=== PATIENT | male | born 1960 | race American Indian/Alaskan Native ===

== ENCOUNTER 2018-07-19 08:20 | Emergency (ER) | payer OTHER ==
[2018-07-19 08:27] VITALS: BP 185/102
[2018-07-19] MEDS ORDERED: NACL 0.9% 1000 ML 1,000 ML IV ONE (09:25)
[2018-07-19] MEDS ORDERED: PEPCID IV ONE (09:25)
[2018-07-19] MEDS ORDERED: ZOFRAN IV ONE (09:25)
[2018-07-19 09:41] LABS: Basophils # (Auto) 0.1 K/mm3 (0.0-0.1); Basophils % (Auto) 1.3 % (0.0-1.8); Eosinophils # (Auto) 0.1 K/mm3 (0.0-0.4); Eosinophils % (Auto) 1.3 % (0.0-4.3); Hematocrit 46.3 % (35.5-45.6); Hemoglobin 15.7 gm/dl (11.8-15.2); Lymphocytes # (Auto) 1.3 K/mm3 (1.2-5.4); Lymphocytes % (Auto) 18.6 % (13.4-35.0); Mean Corpuscular HGB Conc 34 % (32-34); Mean Corpuscular Volume 92 fl (84-94); Monocytes # (Auto) 0.7 K/mm3 (0.0-0.8); Monocytes % (Auto) 10.5 % (0.0-7.3); Platelet Count 254 K/mm3 (140-440); Red Blood Count 5.01 M/mm3 (3.65-5.03); Red Cell Distribution Width 14.2 % (13.2-15.2)
[2018-07-19 09:45] LABS: Bilirubin,Urine NEG (Negative); Blood,Urine NEG (Negative); Color,Urine Yellow (Yellow); Mucus,Urine FEW /HPF; Protein,Urine <15 mg/dL mg/dL (Negative); Urobilinogen,Urine < 2.0 mg/dL (<2.0); WBC,Urine < 1.0 /HPF (0.0-6.0)
[2018-07-19 10:12] LABS: Alanine Aminotransferase 26 units/L (7-56); Albumin 4.3 g/dL (3.9-5); BUN/Creatinine Ratio 17; Blood Urea Nitrogen 15 mg/dL (9-20); Hemolysis Index 9
--- NOTE | 2018-07-19 11:18 | Cat Scan Report ---
CT ABDOMEN PELVIS WITH CONTRAST: HISTORY: Right sided abdominal pain with blood in stool. COMPARISON: none. TECHNIQUE: Helical CT in 1.25mm intervals following IV contrast. Sagittal and coronal reconstructions. FINDINGS: Lung bases: Normal. Liver: There is mild diffuse fatty infiltration throughout the liver. No enlargement or focal mass. Biliary system: Cholecystectomy. No biliary dilatation. Pancreas: Normal. Spleen: Normal. Kidneys/ureters/bladder: Normal. Adrenal glands: Normal. Aorta: Normal. Intestines: No oral contrast was administered which limits this exam. There is no evidence for bowel obstruction or focal inflammation. There are a few scattered diverticula in the descending and sigmoid colon. Appendix: Normal. Pelvic viscera: Normal. Ascites: None. Adenopathy: None. Musculoskeletal: Intact. Mild lumbar spondylosis. IMPRESSION: No acute process is identified. Mild diverticulosis of the distal colon. Mild hepatic steatosis.
--- NOTE | 2018-07-19 11:40 | Emergency Department Report ---
ED Abdominal Pain HPI - General Chief Complaint: Abdominal Pain Stated Complaint: STOMACH PAIN Time Seen by Provider: 07/19/18 09:20 Source: patient Mode of arrival: Ambulatory Limitations: No Limitations - History of Present Illness Initial Comments: Patient is a 57-year-old male who is presenting with some right sided abdominal crampiness. Patient states as a colicky discomfort is comes and goes. There is no association with eating or lying flat. Patient states he has had some belching and gas and has been taking Tums for gas. Patient noted some bright red blood in his stool with wiping yesterday. Patient has been taking Na prosyn for musculoskeletal pain. Patient denies any nausea vomiting fevers chills, cold or congestion at this time. - Related Data Previous Rx's Medication Instructions Recorded Last Taken Type Dicyclomine [Bentyl] 20 mg PO QID #10 tablet 07/19/18 Unknown Rx Famotidine [Pepcid] 20 mg PO BID #20 tablet 07/19/18 Unknown Rx Pantoprazole [Protonix] 40 mg PO QDAY #30 tablet 07/19/18 Unknown Rx Allergies Allergy/AdvReac Type Severity Reaction Status Date / Time No Known Allergies Allergy Unverified 07/19/18 08:21 ED Review of Systems ROS: Stated complaint: STOMACH PAIN Other details as noted in HPI Comment: All other systems reviewed and negative ED Past Medical Hx - Past Medical History Previous Medical History?: No Hx Hypertension: Yes - Surgical History Hx Cholecystectomy: Yes - Social History Smoking Status: Never Smoker Substance Use Type: Alcohol - Medications Home Medications: Home Medications Medication Instructions Recorded Confirmed Last Taken Type Dicyclomine [Bentyl] 20 mg PO QID #10 tablet 07/19/18 Unknown Rx Famotidine [Pepcid] 20 mg PO BID #20 tablet 07/19/18 Unknown Rx Pantoprazole [Protonix] 40 mg PO QDAY #30 tablet 07/19/18 Unknown Rx ED Physical Exam - General Limitations: No Limitations General appearance: alert, in no apparent distress - Head Head exam: Present: atraumatic, normocephalic - Eye Eye exam: Present: normal appearance - ENT ENT exam: Present: mucous membranes moist - Neck Neck exam: Present: normal inspection - Respiratory Respiratory exam: Present: normal lung sounds bilaterally. Absent: respiratory distress, wheezes, rales, rhonchi - Cardiovascular Cardiovascular Exam: Present: regular rate, normal rhythm, normal heart sounds. Absent: systolic murmur, diastolic murmur, rubs, gallop - GI/Abdominal GI/Abdominal exam: Present: soft, tenderness (mild tenderness in the right upper quadrant and right lower quadrant.), normal bowel sounds. Absent: distended, guarding, rebound, rigid - Rectal Rectal exam: Present: deferred - Extremities Exam Extremities exam: Present: normal inspection - Back Exam Back exam: Present: normal inspection - Neurological Exam Neurological exam: Present: alert, oriented X3 - Psychiatric Psychiatric exam: Present: normal affect, normal mood - Skin Skin exam: Present: warm, dry, intact, normal color. Absent: rash ED Course Vital Signs 07/19/18 08:25 Temperature 98.3 F Pulse Rate 95 H Respiratory 16 Rate Blood Pressure 185/102 O2 Sat by Pulse 97 Oximetry ED Medical Decision Making - Lab Data Result diagrams: 07/19/18 09:31 07/19/18 09:31 Lab Results 07/19/18 07/19/18 07/19/18 Range/Units 09:22 09:31 09:31 WBC 6.9 (4.5-11.0) K/mm3 RBC 5.01 (3.65-5.03) M/mm3 Hgb 15.7 H (11.8-15.2) gm/dl Hct 46.3 H (35.5-45.6) % MCV 92 (84-94) fl MCH 31 (28-32) pg MCHC 34 (32-34) % RDW 14.2 (13.2-15.2) % Plt Count 254 (140-440) K/mm3 Lymph % (Auto) 18.6 (13.4-35.0) % [place] % (Auto) 10.5 H (0.0-7.3) % Eos % (Auto) 1.3 (0.0-4.3) % Baso % (Auto) 1.3 (0.0-1.8) % Lymph # 1.3 (1.2-5.4) K/mm3 [place] # 0.7 (0.0-0.8) K/mm3 Eos # 0.1 (0.0-0.4) K/mm3 Baso # 0.1 (0.0-0.1) K/mm3 Seg Neutrophils % 68.3 (40.0-70.0) % Seg Neutrophils # 4.7 (1.8-7.7) K/mm3 Sodium 135 L (137-145) mmol/L Potassium 4.0 (3.6-5.0) mmol/L Chloride 98.4 (98-107) mmol/L Carbon Dioxide 24 (22-30) mmol/L Anion Gap 17 mmol/L BUN 15 (9-20) mg/dL Creatinine 0.9 (0.8-1.5) mg/dL Estimated GFR > 60 ml/min BUN/Creatinine Ratio 17 % Glucose 103 H (75-100) mg/dL Calcium 9.0 (8.4-10.2) mg/dL Total Bilirubin 1.00 (0.1-1.2) mg/dL AST 25 (5-40) units/L ALT 26 (7-56) units/L Alkaline Phosphatase 59 (35-129) units/L Total Protein 7.4 (6.3-8.2) g/dL Albumin 4.3 (3.9-5) g/dL Albumin/Globulin Ratio 1.4 % Lipase 26 (13-60) units/L Urine Color Yellow (Yellow) Urine Turbidity Clear (Clear) Urine pH 5.0 (5.0-7.0) Ur Specific [place] 1.019 (1.003-1.030) Urine Protein <15 mg/dl (Negative) mg/dL Urine Glucose (UA) Neg (Negative) mg/dL Urine Ketones Neg (Negative) mg/dL Urine Blood Neg (Negative) Urine Nitrite Neg (Negative) Urine Bilirubin Neg (Negative) Urine Urobilinogen < 2.0 (<2.0) mg/dL Ur Leukocyte Esterase Neg (Negative) Urine WBC (Auto) < 1.0 (0.0-6.0) /HPF Urine RBC (Auto) 1.0 (0.0-6.0) /HPF U Epithel Cells (Auto) 1.0 (0-13.0) /HPF Urine Mucus Few /HPF - Radiology Data [facility] [address] [place] [address] Cat Scan Report Signed Patient: GRETA PINEDO MR#: [id number] : 1960 Acct:[id number] Age/Sex: 57 / M ADM Date: 07/19/18 Loc: ED Attending Dr: Ordering Physician: KALPESH SCHULTZ MD Date of Service: 07/19/18 Procedure(s): CT abdomen pelvis w con Accession Number(s): [id number] cc: KALPESH SCHULTZ MD CT ABDOMEN PELVIS WITH CONTRAST: HISTORY: Right sided abdominal pain with blood in stool. COMPARISON: none. TECHNIQUE: Helical CT in 1.25mm intervals following IV contrast. Sagittal and coronal reconstructions. FINDINGS: Lung bases: Normal. Liver: There is mild diffuse fatty infiltration throughout the liver. No enlargement or focal mass. Biliary system: Cholecystectomy. No biliary dilatation. Pancreas: Normal. Spleen: Normal. Kidneys/ureters/bladder: Normal. Adrenal glands: Normal. Aorta: Normal. Intestines: No oral contrast was administered which limits this exam. There is no evidence for bowel obstruction or focal inflammation. There are a few scattered diverticula in the descending and sigmoid colon. Appendix: Normal. Pelvic viscera: Normal. Ascites: None. Adenopathy: None. Musculoskeletal: Intact. Mild lumbar spondylosis. IMPRESSION: No acute process is identified. Mild diverticulosis of the distal colon. Mild hepatic steatosis. Transcribed By: TTR Dictated By: SHANTAL TEIXEIRA JR, MD Electronically Authenticated By: SHANTAL TEIXEIRA JR, MD Signed Date/Time: 07/19/18 111 DD/ 1112 TD/TT: 07/19/18 1113 - Medical Decision Making Patient's CT shows some mild diverticular disease however this is an area opposite of what the patient has his discomfort. Peptic ulcer disease cannot be ruled out at this time. Patient will be referred to gastroenterology. Patient's doctor studies are within normal limits. Patient did have relief with the IV Pepcid that was given. Patient discharged home in stable condition. Critical care attestation.: If time is entered above; I have spent that time in minutes in the direct care of this critically ill patient, excluding procedure time. ED Disposition Clinical Impression: Diverticulosis, Peptic ulcer Disposition: DC-01 TO HOME OR SELFCARE Is pt being admited?: No Does the pt Need Aspirin: No Condition: Stable Additional Instructions: Your CT showed that she had diverticulosis however it is mild at this time and may not be the cause of your pain. Your symptoms are most consistent with peptic ulcer disease however no large or ruptured ulcers were found today. Please follow up with gastroenterology. Referrals: [facility] [Provider Group] - 3-5 Days Time of Disposition: 11:41
== END 2018-07-19 11:53 | disposition home or self-care (01) ==
LOC: ED 08:20
DX: K25.9 Gastric ulcer, unspecified as acute or chronic, without hemorrhage or perforation (principal); K57.90 Diverticulosis of intestine, part unspecified, without perforation or abscess without bleeding; I10 Essential (primary) hypertension; Z90.49 Acquired absence of other specified parts of digestive tract
CPT/HCPCS: 36415; 74177; 80053; 81001; 83690; 85025; 96374; 96375; 99284; J2405; J7030; Q9967

== ENCOUNTER 2018-08-16 08:13 | Emergency (ER) | payer OTHER ==
[2018-08-16 09:01] LABS: Basophils # (Auto) 0.1 K/mm3 (0.0-0.1); Basophils % (Auto) 0.9 % (0.0-1.8); Eosinophils # (Auto) 0.1 K/mm3 (0.0-0.4); Eosinophils % (Auto) 1.5 % (0.0-4.3); Hematocrit 47.2 % (35.5-45.6); Lymphocytes # (Auto) 1.1 K/mm3 (1.2-5.4); Lymphocytes % (Auto) 16.1 % (13.4-35.0); Mean Corpuscular HGB Conc 34 % (32-34); Mean Corpuscular Volume 92 fl (84-94); Monocytes # (Auto) 0.7 K/mm3 (0.0-0.8); Monocytes % (Auto) 9.9 % (0.0-7.3); Platelet Count 235 K/mm3 (140-440); Red Blood Count 5.12 M/mm3 (3.65-5.03)
[2018-08-16 09:02] LABS: Bilirubin,Urine NEG (Negative); Blood,Urine NEG (Negative); Color,Urine Yellow (Yellow); Mucus,Urine FEW /HPF; Protein,Urine <15 mg/dL mg/dL (Negative); Urobilinogen,Urine < 2.0 mg/dL (<2.0)
[2018-08-16 09:13] LABS: Alanine Aminotransferase 23 units/L (7-56); Albumin 4.4 g/dL (3.9-5); BUN/Creatinine Ratio 16; Blood Urea Nitrogen 14 mg/dL (9-20); Calcium 8.9 mg/dL (8.4-10.2); Hemolysis Index 6
[2018-08-16] MEDS ORDERED: ZOFRAN IV ONE (09:27)
[2018-08-16] MEDS ORDERED: NACL 0.9% 1000 ML 1,000 ML IV ONE (09:27)
[2018-08-16] MEDS ORDERED: SUBLIMAZE IV ONE (09:27)
[2018-08-16] MEDS ORDERED: PEPCID IV ONE (09:28)
--- NOTE | 2018-08-16 09:35 | Emergency Department Report ---
HPI - General Chief Complaint: Abdominal Pain Time Seen by Provider: 08/16/18 09:20 - HPI HPI: Room 3 The patient is a 58-year-old male presenting with a chief complaint of headache and abdominal pain. Patient states last night he developed a headache right temporal region as well as nausea and vomiting. Patient states he developed epigastric abdominal pain from frequent vomiting. Patient states both pains have been constant and he gives a score 10/10. Patient states he attempted to use Pepto-Bismol but it has not helped Location: [See above] Duration: [See above] Quality: [See above] Severity: [See above] Modifying factors: [see above] Context: [see above] Mode of transportation: [not driving] ED Past Medical Hx - Past Medical History Previous Medical History?: Yes Hx Hypertension: Yes - Surgical History Past Surgical History?: Yes Hx Cholecystectomy: Yes - Family History Family history: no significant - Social History Smoking Status: Never Smoker Substance Use Type: Alcohol - Medications Home Medications: Home Medications Medication Instructions Recorded Confirmed Last Taken Type Dicyclomine [Bentyl] 20 mg PO QID #10 tablet 07/19/18 Unknown Rx Famotidine [Pepcid] 20 mg PO BID #20 tablet 07/19/18 Unknown Rx Pantoprazole [Protonix] 40 mg PO QDAY #30 tablet 07/19/18 Unknown Rx HYDROcodone/APAP 5-325 [[place] 1 each PO Q6HR PRN #10 tablet 08/16/18 Unknown Rx 5/325] Ondansetron [Zofran ODT TAB] 8 mg PO Q8HR #20 tab.rapdis 08/16/18 Unknown Rx amLODIPine [Norvasc] 5 mg PO DAILY #60 tab 08/16/18 Unknown Rx ED Review of Systems ROS: Stated complaint: SOB/ABD PAIN Other details as noted in HPI Constitutional: diaphoresis Eyes: denies: eye pain ENT: denies: throat pain Respiratory: no symptoms reported Cardiovascular: denies: chest pain Endocrine: no symptoms reported Gastrointestinal: abdominal pain, nausea, vomiting Genitourinary: denies: dysuria Musculoskeletal: denies: back pain Neurological: denies: headache Physical Exam - Physical Exam Vital Signs: Vital Signs 08/16/18 08:20 Temperature 97.5 F L Pulse Rate 88 Respiratory 20 Rate Blood Pressure 185/101 O2 Sat by Pulse 99 Oximetry Vital Signs 08/16/18 08/16/18 08/16/18 08:20 10:14 10:15 Temperature 97.5 F L Pulse Rate 88 Respiratory 20 Rate Blood Pressure 185/101 162/90 O2 Sat by Pulse 99 99 97 Oximetry Physical Exam: GENERAL: The patient is well-developed well-nourished male lying on stretcher not appearing to be in acute distress. [] HEENT: Normocephalic. Atraumatic. Extraocular motions are intact. Patient has moist mucous membranes. NECK: Supple. No meningitic signs are noted. Trachea midline CHEST/LUNGS: Clear to auscultation. There is no respiratory distress noted. HEART/CARDIOVASCULAR: Regular. There is no tachycardia. There is no gallop rub or murmur. ABDOMEN: Abdomen is soft, with mild discomfort to palpation in the epigastric and periumbilical region only. There is no rebound or guarding patient has normal bowel sounds. There is no abdominal distention. SKIN: There is no rash. There is no edema. There is no diaphoresis. NEURO: The patient is awake, alert, and oriented. The patient is cooperative. The patient has no focal neurologic deficits. The patient has normal speech. Cranial nerves II through XII grossly intact, no drift MUSCULOSKELETAL: There is no evidence of acute injury. ED Course Vital Signs 08/16/18 08:20 Temperature 97.5 F L Pulse Rate 88 Respiratory 20 Rate Blood Pressure 185/101 O2 Sat by Pulse 99 Oximetry - Reevaluation(s) Reevaluation #1: 08/16/18 12:28 Blood pressure improved to 139 systolic. Patient states he feels good now. ED Medical Decision Making - Lab Data Result diagrams: 08/16/18 08:43 08/16/18 08:43 - EKG Data -: EKG Interpreted by Ne EKG shows normal: sinus rhythm Rate: normal - EKG Data When compared to previous EKG there are: previous EKG unavailable Interpretation: other (no ischemic changes seen) - Radiology Data Radiology results: report reviewed (CT head, CT abdomen and pelvis), image reviewed (CT head, CT abdomen and pelvis) [facility] [address] [place] [address] Cat Scan Report Signed Patient: GRETA PINEDO MR#: [id number] : 1960 Acct:[id number] Age/Sex: 58 / M ADM Date: 08/16/18 Loc: ED Attending Dr: Ordering Physician: MAHENDRA BEEBE MD Date of Service: 08/16/18 Procedure(s): CT head/brain wo con Accession Number(s): [id number] cc: MAHENDRA BEEBE MD CT HEAD WITHOUT CONTRAST: HISTORY: Headache, nausea and vomiting. TECHNIQUE: Sequential 2.5mm CT images. COMPARISON: none. FINDINGS: Cerebral Parenchyma: Within normal limits. Cerebellum: Within normal limits. Brainstem: Within normal limits. Ventricles: Normal. Sella: Normal. Extra-axial spaces: Normal. Basal Cisterns: Normal. Intracranial Hemorrhage: None. Midline Shift: None. Calvarium: Normal. Sinuses: Normal. Mastoid Air Cells: Normal. Visualized Orbits: Normal. IMPRESSION: Cranial CT scan within normal limits. Transcribed By: TTR Dictated By: SHANTAL TEIXEIRA JR, MD Electronically Authenticated By: SHANTAL TEIXEIRA JR, MD Signed Date/Time: 08/16/18 1041 DD/ 1040 TD/TT: 08/16/18 1041 [facility] [address] [place] [address] Cat Scan Report Signed Patient: GRETA PINEDO MR#: [id number] : 1960 Acct:[id number] Age/Sex: 58 / M ADM Date: 08/16/18 Loc: ED Attending Dr: Ordering Physician: MAHENDRA BEEBE MD Date of Service: 08/16/18 Procedure(s): CT abdomen pelvis w con Accession Number(s): [id number] cc: MAHENDRA BEEBE MD CT ABDOMEN PELVIS WITH CONTRAST: HISTORY: Epigastric abdominal pain, nausea and vomiting. COMPARISON: 07/19/18. TECHNIQUE: Helical CT in 1.25mm intervals following IV contrast. Sagittal and coronal reconstructions. FINDINGS: Lung bases: Normal. Liver: Mild fatty infiltration of the liver is unchanged. Biliary system: Cholecystectomy. No biliary dilatation. Pancreas: Normal. Spleen: Normal. Kidneys/ureters/bladder: Normal. Adrenal glands: Normal. Aorta: Normal. Intestines: There is a small amount of oral contrast in the distal small bowel loops, appendix and colon. Mild diverticulosis of the distal colon is again noted. No evidence for obstruction or focal inflammation. Appendix: Normal. Pelvic viscera: Normal. Ascites: None. Adenopathy: None. Musculoskeletal: Intact. Mild lumbar spondylosis. IMPRESSION: No acute abdominal process is identified. Mild hepatic steatosis. Mild diverticulosis distal colon. No significant change since 07/19/18. Transcribed By: TTR Dictated By: SHANTAL TEIXEIRA JR, MD Electronically Authenticated By: SHANTAL TEIXEIRA JR, MD Signed Date/Time: 08/16/18 1202 DD/ 1200 TD/TT: 08/16/18 1202 - Differential Diagnosis migraine, ICH, hypertensive urgency, pancreatitis, peptic ulcer disease, ga Critical care attestation.: If time is entered above; I have spent that time in minutes in the direct care of this critically ill patient, excluding procedure time. ED Disposition Clinical Impression: Hypertensive urgency, Headache, Nausea & vomiting Disposition: - TO HOME OR SELFCARE Is pt being admited?: No Does the pt Need Aspirin: No Condition: Stable Instructions: Hypertensive Crisis (ED) Additional Instructions: Return to the emergency department immediately should you develop worsening symptoms, fever, inability to tolerate food or liquid or any other concerns. Prescriptions: HYDROcodone/APAP 5-325 [[place] 5/325] 1 each PO Q6HR PRN #10 tablet PRN Reason: Pain amLODIPine [Norvasc] 5 mg PO DAILY #60 tab Ondansetron [Zofran ODT TAB] 8 mg PO Q8HR #20 tab.rapdis Referrals: LEXI GARCIA MD [Primary Care Provider] - 3-5 Days Time of Disposition: 12:29
[2018-08-16] MEDS ORDERED: CATAPRES PO ONE (10:28)
--- NOTE | 2018-08-16 10:46 | Cat Scan Report ---
CT HEAD WITHOUT CONTRAST: HISTORY: Headache, nausea and vomiting. TECHNIQUE: Sequential 2.5mm CT images. COMPARISON: none. FINDINGS: Cerebral Parenchyma: Within normal limits. Cerebellum: Within normal limits. Brainstem: Within normal limits. Ventricles: Normal. Sella: Normal. Extra-axial spaces: Normal. Basal Cisterns: Normal. Intracranial Hemorrhage: None. Midline Shift: None. Calvarium: Normal. Sinuses: Normal. Mastoid Air Cells: Normal. Visualized Orbits: Normal. IMPRESSION: Cranial CT scan within normal limits.
--- NOTE | 2018-08-16 12:08 | Cat Scan Report ---
CT ABDOMEN PELVIS WITH CONTRAST: HISTORY: Epigastric abdominal pain, nausea and vomiting. COMPARISON: 07/19/18. TECHNIQUE: Helical CT in 1.25mm intervals following IV contrast. Sagittal and coronal reconstructions. FINDINGS: Lung bases: Normal. Liver: Mild fatty infiltration of the liver is unchanged. Biliary system: Cholecystectomy. No biliary dilatation. Pancreas: Normal. Spleen: Normal. Kidneys/ureters/bladder: Normal. Adrenal glands: Normal. Aorta: Normal. Intestines: There is a small amount of oral contrast in the distal small bowel loops, appendix and colon. Mild diverticulosis of the distal colon is again noted. No evidence for obstruction or focal inflammation. Appendix: Normal. Pelvic viscera: Normal. Ascites: None. Adenopathy: None. Musculoskeletal: Intact. Mild lumbar spondylosis. IMPRESSION: No acute abdominal process is identified. Mild hepatic steatosis. Mild diverticulosis distal colon. No significant change since 07/19/18.
[2018-08-16 12:51] VITALS: BP 144/79
== END 2018-08-16 12:50 | disposition home or self-care (01) ==
LOC: ED 08:13
DX: I16.0 Hypertensive urgency (principal); R11.2 Nausea with vomiting, unspecified; R10.13 Epigastric pain; Z90.49 Acquired absence of other specified parts of digestive tract
CPT/HCPCS: 36415; 70450; 74177; 80053; 81001; 83690; 84484; 85025; 93005; 93010; 96361; 96374; 96375; 99284; J2405; J3010; J7030; Q9967

== ENCOUNTER 2018-12-24 19:26 | Emergency (ER) | payer SELFPAY ==
[2018-12-24 21:03] LABS: Basophils # (Auto) 0.1 K/mm3 (0.0-0.1); Basophils % (Auto) 1.1 % (0.0-1.8); Eosinophils % (Auto) 0.4 % (0.0-4.3); Hematocrit 47.1 % (35.5-45.6); Hemoglobin 15.9 gm/dl (11.8-15.2); Lymphocytes # (Auto) 1.5 K/mm3 (1.2-5.4); Lymphocytes % (Auto) 19.3 % (13.4-35.0); Mean Corpuscular HGB Conc 34 % (32-34); Mean Corpuscular Volume 94 fl (84-94); Monocytes # (Auto) 0.8 K/mm3 (0.0-0.8); Monocytes % (Auto) 10.5 % (0.0-7.3); Platelet Count 294 K/mm3 (140-440); Red Blood Count 5.04 M/mm3 (3.65-5.03); Red Cell Distribution Width 13.9 % (13.2-15.2)
[2018-12-24 21:40] LABS: BUN/Creatinine Ratio 18; Blood Urea Nitrogen 14 mg/dL (9-20); Calcium 8.2 mg/dL (8.4-10.2); Hemolysis Index 22
[2018-12-24] MEDS ORDERED: LORazepam 2 MG/ML VIAL IV ONE (21:46)
[2018-12-24] MEDS ORDERED: THIAMINE 100 MG, FOLIC ACID 1 MG, MULTIPLE VITAMIN INJ, ADULT 10 ML in SODIUM CHLORIDE ... IV ONE (21:46)
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
[2018-12-24 23:10] LABS: Bilirubin,Urine NEG (Negative); Blood,Urine NEG (Negative); Color,Urine Straw (Yellow); Protein,Urine <15 mg/dL mg/dL (Negative); Urobilinogen,Urine < 2.0 mg/dL (<2.0); WBC,Urine < 1.0 /HPF (0.0-6.0)
[2018-12-24 23:19] LABS: Amphetamine Screen,Urine PRESUMPTIVE NEGATIVE; Benzodiazepines Screen,Urine PRESUMPTIVE NEGATIVE; Cannabinoid Screen,Urine PRESUMPTIVE NEGATIVE; Cocaine Screen,Urine PRESUMPTIVE NEGATIVE; Methadone Screen,Urine PRESUMPTIVE NEGATIVE; Opiate Screen,Urine PRESUMPTIVE NEGATIVE
[2018-12-24] MEDS ORDERED: KETOROLAC 30 MG/1 ML INJ IV ONE (23:23)
[2018-12-24] MEDS ORDERED: LORazepam 2 MG TAB PO PRN (23:28)
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
[2018-12-25] MEDS ORDERED: ONDANSETRON 4 MG/2 ML INJ ONE (00:43)
[2018-12-25] MEDS: ONDANSETRON 4 MG/2 ML INJ IV ONE ×2 (01:09→03:32)
[2018-12-25] MEDS ORDERED: ONDANSETRON 4 MG/2 ML INJ IV ONE ×2 (01:12→09:22)
[2018-12-25] MEDS ORDERED: ACETAMINOPHEN 325 MG TAB ONE (02:56)
[2018-12-25] MEDS ORDERED: ACETAMINOPHEN 325 MG TAB PO ONE ×2 (03:00→03:10)
[2018-12-25] MEDS ORDERED: KETOROLAC 30 MG/1 ML INJ IV ONE (09:22)
[2018-12-25] MEDS ORDERED: diphenhydrAMINE 50 MG/ML VIAL IV ONE (11:30)
[2018-12-25] MEDS ORDERED: HALOPERIDOL LACTATE 5 MG/1 ML INJ IM ONE (11:30)
--- NOTE | 2018-12-25 13:42 | Consultation ---
History of Present Illness - Reason for Consult Consult date: 12/25/18 Reason for consult: Psychiatric Consult Requesting physician: EH DAMICO - Chief Complaint Chief complaint: " I didn't handle things well" - History of Present Psychiatric Illness Patient is a 58 y/o male who presents to the ER with suicidal thoughts and ideation. He reports being very stressed at home and not handling things at home with his and son well. He reports not eating and drinking for several days. His choice of alcohol was vodka. He reports drinking up to 1/2 gallon. He says he has history of being anxious and suicidal. He keeps saying he doesn't know why he can't handle things. He denies Auditory and visual hallucinations. He denies any homicidal ideations. Medications and Allergies Allergies Allergy/AdvReac Type Severity Reaction Status Date / Time No Known Allergies Allergy Verified 08/16/18 08:20 Home Medications Medication Instructions Recorded Confirmed Last Taken Type Famotidine [Pepcid] 20 mg PO BID #20 tablet 07/19/18 12/25/18 Unknown Rx Pantoprazole [Protonix TAB] 40 mg PO QDAY #30 tablet 07/19/18 12/25/18 Unknown Rx amLODIPine 5 mg PO DAILY #60 tab 08/16/18 12/25/18 Unknown Rx Active Meds: Active Medications Lorazepam (Ativan) 2 mg PO Q1HR PRN PRN Reason: CIWA-Ar 8-15 Lorazepam (Ativan) 4 mg PO Q1HR PRN PRN Reason: CIWA-Ar 16-25 Past psychiatric history - Past Medical History Past Medical History: hypertension - past Psychiatric treatment and history Psych: Anxiety, Depression, Panic - Social History Social history: , lives with family, alcohol abuse Mental Status Exam - Vital signs Last Vital Signs Temp 98.5 F 12/25/18 07:00 Pulse 87 12/25/18 07:00 Resp 18 12/25/18 07:00 BP 154/89 12/25/18 07:00 Pulse Ox 100 12/25/18 07:00 - Exam Orientation: time, place, person Affect: depressed, anxious, agitated Mood: sad, anxious Thought content: thought broadcasting Thought Process: Circumstantial, Tangential Speech: slow Concentration: distractible Motor activity: restless Memory: Intact Interaction: cooperative Results Result Diagrams: 12/24/18 20:35 12/24/18 20:35 Abnormal lab results 12/24/18 12/24/18 12/24/18 Range/Units 20:35 20:35 21:32 RBC 5.04 H (3.65-5.03) M/mm3 Hgb 15.9 H (11.8-15.2) gm/dl Hct 47.1 H (35.5-45.6) % Mclennan % (Auto) 10.5 H (0.0-7.3) % Carbon Dioxide 20 L (22-30) mmol/L Glucose 124 H (75-100) mg/dL Calcium 8.2 L (8.4-10.2) mg/dL Salicylates (2.8-20.0) mg/dL Acetaminophen (10.0-30.0) ug/mL Plasma/Serum Alcohol 0.26 H (0-0.07) % 12/24/18 12/24/18 Range/Units 21:36 21:36 RBC (3.65-5.03) M/mm3 Hgb (11.8-15.2) gm/dl Hct (35.5-45.6) % Mclennan % (Auto) (0.0-7.3) % Carbon Dioxide (22-30) mmol/L Glucose (75-100) mg/dL Calcium (8.4-10.2) mg/dL Salicylates 1.7 L (2.8-20.0) mg/dL Acetaminophen < 5.0 L (10.0-30.0) ug/mL Plasma/Serum Alcohol (0-0.07) % All other labs normal. Assessment and Plan Assessment and plan: Impression ETOH use disorder, Depression, Anxiety, Suicidal ideations Continue 1012 for patient...Patient is on CIWA protocol treat and evaluate appropriately Hydrate ...Encourage PO intake Depression and Anxiety....Lexapro 10mg PO daily Place on Suicide Precautions.. Evaluate for inpatient status... Will staff with Dr. Kamar MD
[2018-12-25] MEDS ORDERED: ESCITALOPRAM 10 MG TAB PO ONE (14:00)
[2018-12-25] MEDS ORDERED: amLODIPine 5 MG TAB PO ONE (14:39)
[2018-12-25] MEDS: ONDANSETRON 4 MG/2 ML INJ IV PRN (21:22)
[2018-12-25] MEDS: LORazepam 2 MG TAB PO PRN (22:58)
[2018-12-26] MEDS: LORazepam 2 MG TAB PO PRN ×2 (09:30→18:00)
[2018-12-26] MEDS ORDERED: ONDANSETRON 4 MG/2 ML INJ IV ONE (10:48)
[2018-12-26] MEDS ORDERED: ACETAMINOPHEN 325 MG TAB PO ONE (10:48)
[2018-12-26] MEDS ORDERED: amLODIPine 5 MG TAB PO ONE (11:23)
--- NOTE | 2018-12-26 19:17 | Progress Note ---
Subjective - Reason for Consult Consult date: 12/26/18 Reason for consult: Psychiatric Follow-up Requesting physician: EH DAMICO - Chief Complaint Chief complaint: " I didn't handle things well" I didn't handle things well" - History of Present Psychiatric Illness Patient is a 58 y/o male who presents to the ER with suicidal thoughts and ideation. Patient seen today and he is calmer, anxiety appears decreased..not as diaphoretic and pacing as much. He talks about a lot of familial challenges and has some difficulty when it get roughs. He says he has history of being anxious and suicidal. He keeps saying he doesn't know why he can't handle things. He denies Auditory and visual hallucinations. He denies any homicidal ideations. Medications and Allergies Allergies Allergy/AdvReac Type Severity Reaction Status Date / Time No Known Allergies Allergy Verified 08/16/18 08:20 Home Medications Medication Instructions Recorded Confirmed Last Taken Type Famotidine [Pepcid] 20 mg PO BID #20 tablet 07/19/18 12/25/18 Unknown Rx Pantoprazole [Protonix TAB] 40 mg PO QDAY #30 tablet 07/19/18 12/25/18 Unknown Rx amLODIPine 5 mg PO DAILY #60 tab 08/16/18 12/25/18 Unknown Rx Active Meds: Active Medications Lorazepam (Ativan) 2 mg PO Q1HR PRN PRN Reason: CIWA-Ar 8-15 Lorazepam (Ativan) 4 mg PO Q1HR PRN PRN Reason: CIWA-Ar 16-25 Past psychiatric history - Past Medical History Past Medical History: hypertension - past Psychiatric treatment and history Psych: Anxiety, Depression, Panic - Social History Social history: , lives with family, alcohol abuse Mental Status Exam - Vital signs Last Vital Signs Temp 98.5 F 12/25/18 07:00 Pulse 87 12/25/18 07:00 Resp 18 12/25/18 07:00 BP 154/89 12/25/18 07:00 Pulse Ox 100 12/25/18 07:00 - Exam Orientation: time, place, person Affect: depressed, anxious, agitated Mood: sad, anxious Thought content: thought broadcasting Thought Process: Circumstantial, Tangential Speech: slow Concentration: distractible Motor activity: restless Memory: Intact Interaction: cooperative Results Result Diagrams: 12/24/18 20:35 12/24/18 20:35 Mental Status Exam - Vital signs Last Vital Signs Temp 98.5 F 12/26/18 13:00 Pulse 106 H 12/26/18 13:00 Resp 18 12/26/18 13:00 BP 158/91 12/26/18 13:00 Pulse Ox 97 12/26/18 13:00 - Exam Orientation: time, place, person Affect: anxious Mood: appropriate, sad, anxious Thought Process: Intact, Circumstantial Perceptions: none Speech: normal rate and pattern Concentration: distractible Motor activity: restless Memory: Intact Interaction: cooperative, pleasant Assessment and Plan Impression ETOH use disorder, Depression, Anxiety, Suicidal ideations Continue 1013 for patient...Patient is on CIWA protocol treat and evaluate appropriately Hydrate ...Encourage PO intake Depression and Anxiety....Lexapro 10mg PO daily Place on Suicide Precautions.. Evaluate for inpatient status... staff with Dr. Kamar MD
[2018-12-26] MEDS: ONDANSETRON 4 MG/2 ML INJ IV PRN (21:24)
[2018-12-26] MEDS ORDERED: amLODIPine 10 MG TAB ONE (22:26)
[2018-12-26] MEDS ORDERED: amLODIPine 5 MG TAB PO SCH (22:43)
[2018-12-26] MEDS: amLODIPine 5 MG TAB PO SCH (22:45)
[2018-12-27] MEDS ORDERED: ESCITALOPRAM 10 MG TAB PO NR (09:00)
--- NOTE | 2018-12-27 09:37 | Progress Note ---
Subjective - Reason for Consult Consult date: 12/27/18 Reason for consult: Psychiatry Follow-up - Chief Complaint Chief complaint: "I must do better" 58 y.o male who presented to the ER for SI's and etoh. Today the patient was calm and cooperative during the assessment. He stated that his life have been difficult for him recently. He stated that he hope things get better. He rate his depression 4/10, with 10 being the worse. He stated that he would follow up with outpatient psy/rehab services when discharged. He denies SI/HI's and AVH's. Mental Status Exam - Vital signs Last Vital Signs Temp 98.5 F 12/26/18 13:00 Pulse 106 H 12/26/18 13:00 Resp 18 12/26/18 13:00 BP 158/91 12/26/18 13:00 Pulse Ox 97 12/26/18 13:00 - Exam Narrative exam: MSE: Appearance: calm, cooperative Behavior: regular eye contact Speech: regular rate and tone Mood: "okay" Affect: congruent to mod Thought Process: circumstantial Thought Content: denies SI/HI's and AVH's Motor Activity: ambulatory Cognition: A/O x 3 Insight: variable to fair Judgment: variable Assessment and Plan Impression: MDD. Alcohol Use DO. Today the patient was calm and cooperative during the assessment. DDx: Alcohol Induced Mood DO Recommendation/Plan: Reevaluate the patient's 1013 in 24 hours. Continue CIWA. Start Lexapro 5 mg PO daily for depression. Discussed possible suicidality/me dication induced quinn with the patient reference Lexapro, he verbalized understanding. Dispo: If the patient's 1013 is rescinded, he can follow up with [facility] for outpatient psy services. Staffed with Dr Awa Galvin.
[2018-12-27] MEDS ORDERED: amLODIPine 5 MG TAB PO SCH ×2 (10:00→22:35)
[2018-12-27] MEDS: amLODIPine 5 MG TAB PO SCH (10:50)
[2018-12-27] MEDS ORDERED: IBUPROFEN 800 MG TAB PO ONE ×2 (14:00→20:36)
[2018-12-27] MEDS ORDERED: IBUPROFEN 800 MG TAB ONE (20:39)
[2018-12-27] MEDS: LORazepam 2 MG TAB PO PRN (23:47)
--- NOTE | 2018-12-28 08:55 | Progress Note ---
Subjective - Reason for Consult Consult date: 12/28/18 Reason for consult: Psychiatry Follow-up - Chief Complaint Chief complaint: "I'm well" 58 y.o male who presented to the ER for SI's and etoh. Today the patient was calm and cooperative during the assessment. He stated that he will make better decision in the future reference his alcohol consumption (etoh). He denies SI/HI's and AVH's. He denies any side effects from his medication. Mental Status Exam - Vital signs Last Vital Signs Temp 97.9 F 12/28/18 08:00 Pulse 84 12/28/18 08:00 Resp 18 12/28/18 08:00 BP 157/91 12/28/18 08:00 Pulse Ox 99 12/28/18 08:00 - Exam Narrative exam: MSE: Appearance: calm, cooperative Behavior: regular eye contact Speech: regular rate and tone Mood: "okay" Affect: congruent to mod Thought Process: linear Thought Content: denies SI/HI's and AVH's Motor Activity: ambulatory Cognition: A/O x 3 Insight: appropriate Judgment: appropriate Assessment and Plan Impression: MDD. Alcohol Use DO. Today the patient was calm and cooperative during the assessment. The patient is no threat to self. DDx: Alcohol Induced Mood DO Recommendation/Plan: Rescind 1013. Continue Lexapro 5 mg PO daily for depression. Discussed possible suicidality/medication induced quinn with the patient reference Lexapro, he verbalized understanding. Discussed the importance to abstain from alcohol consumption, he verbalized understanding. Dispo: The patient can follow up with [facility] for outpatient psy/rehab services. Will staff with Dr Awa Galvin.
[2018-12-28 09:39] VITALS: BP 128/86
[2018-12-28] MEDS: amLODIPine 5 MG TAB PO SCH (09:39)
== END 2018-12-28 13:33 | disposition home or self-care (01) ==
LOC: ED 19:26 → EEVIPCON 19:26 → ED 12-28 13:33
DX: F32.9 Major depressive disorder, single episode, unspecified (principal); F10.10 Alcohol abuse, uncomplicated; I10 Essential (primary) hypertension; F41.9 Anxiety disorder, unspecified; Z79.899 Other long term (current) drug therapy
CPT/HCPCS: 36415; 72100; 80048; 80307; 81001; 85025; 96365; 96366; 96375; 96376; 99284; J1885; J2060; J2405; J3411; J7030; 80320; G0480

== ENCOUNTER 2019-01-03 16:12 | Emergency (ER) | payer SELFPAY | END 2019-01-03 18:36 | disposition left against medical advice (07) | LOC: ED 16:12 | DX: Z53.21 Procedure and treatment not carried out due to patient leaving prior to being seen by health care provider (principal) ==

== ENCOUNTER 2020-04-28 15:39 | Emergency (ER) | payer SELFPAY ==
--- NOTE | 2020-04-28 16:07 | Event Note ---
ED Screening Note ED Screening Note: right upper abd pain for a couple days states he has been drinking alot states he went to [facility] and states he needs clearance states he drinks a pint of lyly a day and multiple beers states he has been on a binge states has associated n/v/d pmhx HTN, anxiety states he had a negative COVID test a week ago non smoker denies drug use has been to rehab facility in the past This initial assessment/diagnostic orders/clinical plan/treatment(s) is/are subject to change based on patients health status, clinical progression and re- assessment by fellow clinical providers in the ED. Further treatment and workup at subsequent clinical providers discretion. Patient/guardian urged not to elope from the ED as their condition may be serious if not clinically assessed and managed. Initial orders include: labs, ua
[2020-04-28 16:26] LABS: Bilirubin,Urine NEG (Negative); Blood,Urine NEG (Negative); Color,Urine Yellow (Yellow); Protein,Urine <15 mg/dL mg/dL (Negative); Urobilinogen,Urine < 2.0 mg/dL (<2.0); WBC,Urine < 1.0 /HPF (0.0-6.0)
[2020-04-28 16:34] LABS: Amphetamine Screen,Urine Negative; Cannabinoid Screen,Urine Negative; Cocaine Screen,Urine Negative; Methadone Screen,Urine Negative; Opiate Screen,Urine Negative
[2020-04-28 16:45] LABS: Benzodiazepines Screen,Urine Positive
[2020-04-28 16:57] LABS: Basophils # (Auto) 0.1 K/mm3 (0.0-0.1); Basophils % (Auto) 0.7 % (0.0-1.8); Eosinophils % (Auto) 0.5 % (0.0-4.3); Hematocrit 41.3 % (35.5-45.6); Hemoglobin 14.3 gm/dl (11.8-15.2); Lymphocytes # (Auto) 1.5 K/mm3 (1.2-5.4); Lymphocytes % (Auto) 15.4 % (13.4-35.0); Mean Corpuscular HGB Conc 35 % (32-34); Mean Corpuscular Volume 91 fl (84-94); Monocytes # (Auto) 0.6 K/mm3 (0.0-0.8); Monocytes % (Auto) 6.2 % (0.0-7.3); Platelet Count 376 K/mm3 (140-440); Red Blood Count 4.54 M/mm3 (3.65-5.03); Red Cell Distribution Width 15.1 % (13.2-15.2)
[2020-04-28 17:15] LABS: Alanine Aminotransferase 44 units/L (7-56); Albumin 3.9 g/dL (3.9-5); BUN/Creatinine Ratio 20; Blood Urea Nitrogen 16 mg/dL (9-20); Calcium 8.5 mg/dL (8.4-10.2); Hemolysis Index 8
[2020-04-28 19:53] VITALS: BP 151/90
[2020-04-28] MEDS ORDERED: ONDANSETRON 4 MG/2 ML INJ IM ONE (19:56)
--- NOTE | 2020-04-28 20:04 | Emergency Department Report ---
ED General Adult HPI - General Chief complaint: Medical Clearance Stated complaint: MEDICAL CLEARENCE/HAMMER/ABD PAIN Time Seen by Provider: 04/28/20 16:05 Source: patient Mode of arrival: Ambulatory Limitations: No Limitations - History of Present Illness Initial comments: Patient is 59 years old male with chronic alcoholism. Patient presented to the ER asking for medical clearance to go to rehab. Patient stated that he has been drinking daily. Patient stated that he has not been eating healthy and he is complaining of abdominal pain, mainly to the right upper quadrant area associated with nausea and dry heaving's. Patient denied any suicidal or homicidal ideation. No visual or auditory hallucination. -: days(s) Severity scale (0 -10): 8 - Related Data Previous Rx's Medication Instructions Recorded Last Taken Type Famotidine [Pepcid] 20 mg PO BID #20 tablet 07/19/18 Unknown Rx Pantoprazole [Protonix TAB] 40 mg PO QDAY #30 tablet 07/19/18 Unknown Rx amLODIPine 5 mg PO DAILY #60 tab 08/16/18 Unknown Rx Allergies Allergy/AdvReac Type Severity Reaction Status Date / Time No Known Allergies Allergy Verified 04/28/20 15:49 ED Review of Systems ROS: Stated complaint: MEDICAL CLEARENCE/HAMMER/ABD PAIN Other details as noted in HPI Comment: All other systems reviewed and negative Constitutional: denies: chills, fever Cardiovascular: denies: chest pain, palpitations Gastrointestinal: abdominal pain, nausea, vomiting, diarrhea Musculoskeletal: denies: back pain Neurological: denies: headache, weakness Psychiatric: anxiety. denies: depression, auditory hallucinations, visual hallucinations, homicidal thoughts, suicidal thoughts ED Past Medical Hx - Past Medical History Hx Hypertension: Yes Hx Congestive Heart Failure: No Hx Diabetes: No Hx Arthritis: Yes (knees) Hx Asthma: No Hx HIV: No - Surgical History Hx Cholecystectomy: Yes - Social History Smoking Status: Never Smoker Substance Use Type: Alcohol - Medications Home Medications: Home Medications Medication Instructions Recorded Confirmed Last Taken Type Famotidine [Pepcid] 20 mg PO BID #20 tablet 07/19/18 12/25/18 Unknown Rx Pantoprazole [Protonix TAB] 40 mg PO QDAY #30 tablet 07/19/18 12/25/18 Unknown Rx amLODIPine 5 mg PO DAILY #60 tab 08/16/18 12/25/18 Unknown Rx ED Physical Exam - General Limitations: No Limitations General appearance: alert, in no apparent distress, anxious - Head Head exam: Present: atraumatic, normocephalic, normal inspection - Eye Eye exam: Present: normal appearance, PERRL - ENT ENT exam: Present: normal exam, normal orophraynx, mucous membranes moist - Neck Neck exam: Present: normal inspection, full ROM. Absent: tenderness, meningismus - Respiratory Respiratory exam: Present: normal lung sounds bilaterally - Cardiovascular Cardiovascular Exam: Present: regular rate, normal rhythm, normal heart sounds - GI/Abdominal GI/Abdominal exam: Present: soft, normal bowel sounds. Absent: distended, tenderness, guarding, rebound, rigid, organomegaly, mass, bruit, pulsatile mass, hernia - Extremities Exam Extremities exam: Present: normal inspection, full ROM, normal capillary refill. Absent: pedal edema, calf tenderness - Back Exam Back exam: Present: normal inspection, full ROM. Absent: CVA tenderness (R), CVA tenderness (L) - Neurological Exam Neurological exam: Present: alert, oriented X3, CN II-XII intact, normal gait, reflexes normal. Absent: motor sensory deficit - Psychiatric Psychiatric exam: Present: anxious - Skin Skin exam: Present: warm, intact, normal color ED Course Vital Signs 04/28/20 04/28/20 15:49 19:48 Temperature 98.0 F Pulse Rate 86 91 H Respiratory 22 20 Rate Blood Pressure 154/88 Blood Pressure 151/90 [Right] O2 Sat by Pulse 97 97 Oximetry ED Medical Decision Making - Lab Data Result diagrams: 04/28/20 16:26 04/28/20 16:26 - Radiology Data Radiology results: report reviewed - Medical Decision Making Patient is 59 years old male with chronic alcoholism. Patient presented to the ER asking for medical clearance to go to rehab. Patient stated that he has been drinking daily. Patient stated that he has not been eating healthy and he is complaining of abdominal pain, mainly to the right upper quadrant area associat ed with nausea and dry heaving's. Patient denied any suicidal or homicidal ideation. No visual or auditory hallucination. Labs reviewed and is unremarkable. CT abdomen and pelvis showed no acute a bnormalities. Patient is alert, oriented x3 no acute distress. Patient is sober. Patient is medically cleared to be admitted to alcohol rehab program. Patient advised to return to the ER if he develop any new symptoms. Critical care attestation.: If time is entered above; I have spent that time in minutes in the direct care of this critically ill patient, excluding procedure time. ED Disposition Clinical Impression: Alcohol abuse, Abdominal pain Disposition: DC- TO HOME OR SELFCARE Is pt being admited?: No Condition: Stable Instructions: Alcohol Use Disorder, Abdominal Pain, Adult Referrals: PRIMARY CARE, [Primary Care Provider] - 3-5 Days
--- NOTE | 2020-04-28 20:43 | Cat Scan Report ---
CT abdomen pelvis wo con INDICATION: ABDOMINAL PAIN. COMPARISON: 11/13/18 the abdomen shows resulting TECHNIQUE: Abdominal and pelvic CT exam performed. All CT scans at this location are performed using CT dose reduction for ALARA by means of automated exposure control. FINDINGS: CT ABDOMEN and PELVIS: Lung Bases: No significant abnormality. Liver: No significant abnormality. Biliary: Gallbladder is surgically absent. Spleen: No significant abnormality. Pancreas: No significant abnormality. Adrenals: No significant abnormality. Kidneys: No significant abnormality. Lymphatics: No lymphadenopathy. Vasculature: No significant abnormality. Bowel: Submucosal fatty deposition the colon. Diverticulosis without colonic wall thickening or peric olonic stranding. Pelvis: No significant abnormality. Osseous Structures: No aggressive osseous lesion. Moderate bilateral hip osteoarthritis Additional Findings: None IMPRESSION: 1. No acute findings. Signer Name: Alfredo Dai MD Signed: 04/28/2020 8:38 PM Workstation Name: [id number]
[2020-04-28] MEDS ORDERED: KETOROLAC 60 MG/2 ML INJ IM ONE (21:12)
== END 2020-04-28 21:29 | disposition home or self-care (01) ==
LOC: ED 15:39
DX: F10.10 Alcohol abuse, uncomplicated (principal); R10.11 Right upper quadrant pain; I10 Essential (primary) hypertension; M17.0 Bilateral primary osteoarthritis of knee; Z79.899 Other long term (current) drug therapy; Z90.49 Acquired absence of other specified parts of digestive tract
CPT/HCPCS: 36415; 74176; 80053; 80307; 81001; 83690; 85025; 96372; 99284; J1885; J2405; 80320; G0480

== ENCOUNTER 2021-05-12 11:06 | Emergency (ER) | payer BC ==
[2021-05-12] MEDS ORDERED: FAMOTIDINE 20 MG/2 ML INJ IV ONE (11:52)
[2021-05-12] MEDS ORDERED: SODIUM CHLORIDE 0.9% 1000 ML 1,000 ML IV ONE (11:52)
[2021-05-12] MEDS ORDERED: METOCLOPRAMIDE 10 MG/2 ML INJ IV ONE (11:52)
[2021-05-12] MEDS ORDERED: DICYCLOMINE 20 MG TAB PO ONE (11:52)
[2021-05-12] MEDS ORDERED: diphenhydrAMINE 50 MG/ML VIAL IV ONE (11:52)
[2021-05-12 12:59] LABS: Basophils # (Auto) 0.1 K/mm3 (0.0-0.1); Eosinophils % (Auto) 0.3 % (0.0-4.3); Hematocrit 47.9 % (35.5-45.6); Hemoglobin 15.9 gm/dl (11.8-15.2); Lymphocytes # (Auto) 1.6 K/mm3 (1.2-5.4); Lymphocytes % (Auto) 22.2 % (13.4-35.0); Mean Corpuscular HGB Conc 33 % (32-34); Mean Corpuscular Volume 92 fl (84-94); Monocytes # (Auto) 0.5 K/mm3 (0.0-0.8); Monocytes % (Auto) 7.3 % (0.0-7.3); Platelet Count 295 K/mm3 (140-440); Red Blood Count 5.21 M/mm3 (3.65-5.03); Red Cell Distribution Width 13.6 % (13.2-15.2)
[2021-05-12 13:10] LABS: Alanine Aminotransferase 43 units/L (7-56); Albumin 4.2 g/dL (3.9-5); BUN/Creatinine Ratio 20; Blood Urea Nitrogen 18 mg/dL (9-20); Calcium 8.2 mg/dL (8.4-10.2); Hemolysis Index 10
--- NOTE | 2021-05-12 13:53 | Cat Scan Report ---
CT ABDOMEN AND PELVIS WITH CONTRAST INDICATION / CLINICAL INFORMATION: n/v abd pain. TECHNIQUE: Axial CT images were obtained through the abdomen and pelvis after 100 cc of Omnipaque [address] scans at this location are performed using CT dose reduction for ALARA by means of automated exposure control. COMPARISON: 04/28/2020 FINDINGS: LOWER CHEST: No significant abnormality. AORTA / ARTERIES: No significant abnormality. IVC / VEINS: No significant abnormality. LYMPH NODES: No significant adenopathy. COLON: Diverticulosis without acute inflammation. APPENDIX: No significant abnormality. STOMACH / SMALL BOWEL: No significant abnormality. PERITONEUM: No free fluid. No free air. No fluid collection. LIVER: No significant abnormality. GALLBLADDER: Cholecystectomy. BILE DUCTS: No significant abnormality. PANCREAS: No significant abnormality. SPLEEN: No significant abnormality. ADRENALS: No significant abnormality. RIGHT KIDNEY / URETER: No significant abnormality. LEFT KIDNEY / URETER: No significant abnormality. URINARY BLADDER: No significant abnormality. REPRODUCTIVE ORGANS: No significant abnormality. SKELETAL SYSTEM: No significant abnormality. ADDITIONAL FINDINGS: None. IMPRESSION: 1. No acute intra-abdominal or intrapelvic pathology. 2. Diverticulosis without diverticulitis. Signer Name: Pete Fitch DO Signed: 05/12/2021 1:48 PM Workstation Name: [id number] [id number]
--- NOTE | 2021-05-12 13:57 | Emergency Department Report ---
ED Abdominal Pain HPI - General Chief Complaint: Dental/Oral Stated Complaint: PAIN/VOMITING/NO EATING Time Seen by Provider: 05/12/21 11:39 Source: patient Mode of arrival: Ambulatory Limitations: No Limitations - History of Present Illness Initial Comments: This is a 60-year-old male nontoxic, well nourished in appearance, no acute signs of distress presents to the ED with c/o of nausea and vomiting and abdominal pain 4 days. Patient describes vomiting as food content and yellow gastric acid. Stated is unable to eat anything due to vomiting. Patient describes abdominal pain as cramping and aching with level of 8/10 diffuse. Denies any dental pain or swelling. Patient denies chest pain, short of breath, fever, hemoptysis, blood in stool, chills, headache, stiff neck, numbness or tingling. Patient denies any diarrhea or constipation. Denies any blood in stool. Patient denies any recent travels. Patient denies any allergies or significant PMH. MD Complaint: abdominal pain -: days(s) Location: diffuse Radiation: none Migration to: no migration Severity: mild Severity scale (0 -10): 8 Quality: cramping, aching Consistency: constant Improves With: nothing Worsens With: nothing Associated Symptoms: nausea, vomiting. denies: diarrhea, fever, chills, constipation, dysuria, hematemesis, hematochezia, melena, hematuria, anorexia, syncope - Related Data Previous Rx's Medication Instructions Recorded Last Taken Type Famotidine [Pepcid] 20 mg PO BID #20 tablet 07/19/18 Unknown Rx Pantoprazole [Protonix TAB] 40 mg PO QDAY #30 tablet 07/19/18 Unknown Rx amLODIPine 5 mg PO DAILY #60 tab 08/16/18 Unknown Rx Ondansetron [Zofran Odt] 4 mg PO Q8HR PRN #14 tab.rapdis 04/28/20 Unknown Rx Dicyclomine [Bentyl] 10 mg PO BID PRN #12 capsule 05/12/21 Unknown Rx Ondansetron [Zofran Odt] 4 mg PO Q12H PRN #12 tab.rapdis 05/12/21 Unknown Rx Allergies Allergy/AdvReac Type Severity Reaction Status Date / Time No Known Allergies Allergy Verified 04/28/20 15:49 ED Review of Systems ROS: Stated complaint: PAIN/VOMITING/NO EATING Other details as noted in HPI Comment: All other systems reviewed and negative Constitutional: denies: chills, fever Eyes: denies: eye pain, eye discharge, vision change ENT: denies: ear pain, throat pain Respiratory: denies: cough, shortness of breath, wheezing Cardiovascular: denies: chest pain, palpitations Endocrine: no symptoms reported Gastrointestinal: abdominal pain, nausea, vomiting. denies: diarrhea, constipation, hematemesis, melena, hematochezia Genitourinary: denies: urgency, dysuria Musculoskeletal: denies: back pain, joint swelling, arthralgia Skin: denies: rash, lesions Neurological: denies: headache, weakness, paresthesias Psychiatric: denies: anxiety, depression Hematological/Lymphatic: denies: easy bleeding, easy bruising ED Past Medical Hx - Past Medical History Hx Hypertension: Yes Hx Congestive Heart Failure: No Hx Diabetes: No Hx Arthritis: Yes (knees) Hx Asthma: No Hx HIV: No - Surgical History Hx Cholecystectomy: Yes - Social History Smoking Status: Never Smoker Substance Use Type: Alcohol - Medications Home Medications: Home Medications Medication Instructions Recorded Confirmed Last Taken Type Famotidine [Pepcid] 20 mg PO BID #20 tablet 07/19/18 12/25/18 Unknown Rx Pantoprazole [Protonix TAB] 40 mg PO QDAY #30 tablet 07/19/18 12/25/18 Unknown Rx amLODIPine 5 mg PO DAILY #60 tab 08/16/18 12/25/18 Unknown Rx Ondansetron [Zofran Odt] 4 mg PO Q8HR PRN #14 tab.rapdis 04/28/20 Unknown Rx Dicyclomine [Bentyl] 10 mg PO BID PRN #12 capsule 05/12/21 Unknown Rx Ondansetron [Zofran Odt] 4 mg PO Q12H PRN #12 tab.rapdis 05/12/21 Unknown Rx ED Physical Exam - General Limitations: No Limitations General appearance: alert, in no apparent distress - Head Head exam: Present: atraumatic, normocephalic - Eye Eye exam: Present: normal appearance - Neck Neck exam: Present: normal inspection, full ROM. Absent: lymphadenopathy - Respiratory Respiratory exam: Present: normal lung sounds bilaterally. Absent: respiratory distress, wheezes, rales, rhonchi, stridor, chest wall tenderness, accessory muscle use, decreased breath sounds, prolonged expiratory - Cardiovascular Cardiovascular Exam: Present: regular rate, normal rhythm, normal heart sounds. Absent: bradycardia, tachycardia, irregular rhythm, systolic murmur, diastolic murmur, rubs, gallop - GI/Abdominal GI/Abdominal exam: Present: soft, tenderness (diffuse), normal bowel sounds. Absent: distended, guarding, rebound, rigid - Extremities Exam Extremities exam: Present: normal inspection, full ROM, normal capillary refill. Absent: tenderness - Back Exam Back exam: Present: normal inspection, full ROM. Absent: tenderness, CVA tenderness (R), CVA tenderness (L), muscle spasm, paraspinal tenderness, vertebral tenderness, rash noted - Neurological Exam Neurological exam: Present: alert, oriented X3, normal gait - Psychiatric Psychiatric exam: Present: normal affect, normal mood - Skin Skin exam: Present: warm, dry, intact, normal color. Absent: rash ED Course Vital Signs 05/12/21 11:14 Temperature 98.3 F Pulse Rate 53 L Respiratory 18 Rate Blood Pressure 160/102 [Right] O2 Sat by Pulse 98 Oximetry - Reevaluation(s) Reevaluation #1: 05/12/21 13:56 Patient is speaking in full sentences with no signs of distress noted. ED Medical Decision Making - Lab Data Result diagrams: 05/12/21 12:07 05/12/21 12:07 Lab Results 05/12/21 05/12/21 05/12/21 Range/Units 12:07 12:07 Unknown WBC 7.4 (4.5-11.0) K/mm3 RBC 5.21 H (3.65-5.03) M/mm3 Hgb 15.9 H (11.8-15.2) gm/dl Hct 47.9 H (35.5-45.6) % MCV 92 (84-94) fl MCH 31 (28-32) pg MCHC 33 (32-34) % RDW 13.6 (13.2-15.2) % Plt Count 295 (140-440) K/mm3 Lymph % (Auto) 22.2 (13.4-35.0) % [place] % (Auto) 7.3 (0.0-7.3) % Eos % (Auto) 0.3 (0.0-4.3) % Baso % (Auto) 1.0 (0.0-1.8) % Lymph # (Auto) 1.6 (1.2-5.4) K/mm3 [place] # (Auto) 0.5 (0.0-0.8) K/mm3 Eos # (Auto) 0.0 (0.0-0.4) K/mm3 Baso # (Auto) 0.1 (0.0-0.1) K/mm3 Seg Neutrophils % 69.2 (40.0-70.0) % Seg Neutrophils # 5.1 (1.8-7.7) K/mm3 Sodium 141 (137-145) mmol/L Potassium 4.0 (3.6-5.0) mmol/L Chloride 101.8 (98-107) mmol/L Carbon Dioxide 23 (22-30) mmol/L Anion Gap 20 mmol/L BUN 18 (9-20) mg/dL Creatinine 0.9 (0.8-1.3) mg/dL Estimated GFR > 60 ml/min BUN/Creatinine Ratio 20 % Glucose 95 (75-100) mg/dL Calcium 8.2 L (8.4-10.2) mg/dL Total Bilirubin 0.70 (0.1-1.2) mg/dL AST 48 H (5-40) units/L ALT 43 (7-56) units/L Alkaline Phosphatase 67 (35-129) units/L Total Protein 7.0 (6.3-8.2) g/dL Albumin 4.2 (3.9-5) g/dL Albumin/Globulin Ratio 1.5 % Lipase 38 (13-60) units/L Urine Color Yellow (Yellow) Urine Turbidity Clear (Clear) Urine pH 5.0 (5.0-7.0) Ur Specific [place] 1.032 H (1.003-1.030) Urine Protein <15 mg/dl (Negative) mg/dL Urine Glucose (UA) Neg (Negative) mg/dL Urine Ketones Tr (Negative) mg/dL Urine Blood Sm (Negative) Urine Nitrite Neg (Negative) Urine Bilirubin Neg (Negative) Urine Urobilinogen < 2.0 (<2.0) mg/dL Ur Leukocyte Esterase Neg (Negative) Urine WBC (Auto) 2.0 (0.0-6.0) /HPF Urine RBC (Auto) 1.0 (0.0-6.0) /HPF U Epithel Cells (Auto) < 1.0 (0-13.0) /HPF Urine Mucus Few /HPF - Radiology Data [facility], [place] [address] [place] [address] Cat Scan Report Signed Patient: GRETA PINEDO MR# : [id number] : 1960 Acct:[id number] Age/Sex: 60 / M ADM Date: 05/12/21 Loc: ED Attending Dr: Ordering Physician: DELANEY MILLS NP Date of Service: 05/12/21 Procedure(s): CT abdomen pelvis w con Accession Number(s): [id number] cc: DELANEY MILLS NP CT ABDOMEN AND PELVIS WITH CONTRAST INDICATION / CLINICAL INFORMATION: n/v abd pain. TECHNIQUE: Axial CT images were obtained through the abdomen and pelvis after 100 cc of Omnipaque [address] scans at this location are performed using CT dose reduction for ALARA by means of automated exposure control. COMPARISON: 04/28/2020 FINDINGS: LOWER CHEST: No significant abnormality. AORTA / ARTERIES: No significant abnormality. IVC / VEINS: No significant abnormality. LYMPH NODES: No significant adenopathy. COLON: Diverticulosis without acute inflammation. APPENDIX: No significant abnormality. STOMACH / SMALL BOWEL: No significant abnormality. PERITONEUM: No free fluid. No free air. No fluid collection. LIVER: No significant abnormality. GALLBLADDER: Cholecystectomy. BILE DUCTS: No significant abnormality. PANCREAS: No significant abnormality. SPLEEN: No significant abnormality. ADRENALS: No significant abnormality. RIGHT KIDNEY / URETER: No significant abnormality. LEFT KIDNEY / URETER: No significant abnormality. URINARY BLADDER: No significant abnormality. REPRODUCTIVE ORGANS: No significant abnormality. SKELETAL SYSTEM: No significant abnormality. ADDITIONAL FINDINGS: None. IMPRESSION: 1. No acute intra-abdominal or intrapelvic pathology. 2. Diverticulosis without diverticulitis. Signer Name: Pete Roland DO Signed: 05/12/2021 1:48 PM Workstation Name: [id number] Transcribed By: KEVIN Dictated By: PETE ROLAND DO Electronically Authenticated By: PETE ROLAND DO Signed Date/Time: 05/12/21 1348 DD/ 1345 TD/TT: - Medical Decision Making This is a 60-year-old male that presents with diverticulosis. Patient is stable and was examined by me. Negative signs of symptoms of appendicitis. Labs obtained. UA obtained. CT of abdomen obtained and dictated by the radiologist. Patient is notified of the report with no questions noted by the patient. Vital signs are stable prior to discharge. Patient received medical treatment in the ED which patient stated symptoms has resovled and subsided. Was instructed note to operate any machinery due to possible drowsiness and stated someone will drive the patient home. A by mouth challenge has been obtained and patient tolerated well with no nausea vomiting. Patient was also instructed to Follow- up with a primary care and superintendent stations doctor in 3-5 days or if symptoms worsen and continue return to emergency room as soon as possible. At time of discharge, the patient does not seem toxic or ill in appearance. No acute signs of distress noted. Patient agrees to discharge treatment plan of care. No further questions noted by the patient. Critical care attestation.: If time is entered above; I have spent that time in minutes in the direct care of this critically ill patient, excluding procedure time. ED Disposition Clinical Impression: Diverticulosis Nausea & vomiting Qualifiers: Vomiting type: unspecified Qualified Code(s): R11.2 - Nausea with vomiting, unspecified Disposition: 01 HOME / SELF CARE / HOMELESS Is pt being admited?: No Does the pt Need Aspirin: No Condition: Stable Instructions: Nausea and Vomiting, Adult, Diverticulosis Additional Instructions: Follow-up with a primary care and [facility] stations doctor in 3-5 days or if symptoms worsen and continue return to emergency room as soon as possible. Prescriptions: Dicyclomine [Bentyl] 10 mg PO BID PRN #12 capsule PRN Reason: abdominal pain Ondansetron [Zofran Odt] 4 mg PO Q12H PRN #12 tab.rapdis PRN Reason: Nausea Referrals: PABLO CASILLAS MD [Primary Care Provider] - 3-5 Days JUAN MAE MD [Staff Physician] - 3-5 Days [facility] [Provider Group] - 3-5 Days Time of Disposition: 14:23
[2021-05-12 14:01] LABS: Bilirubin,Urine NEG (Negative); Blood,Urine SM (Negative); Color,Urine Yellow (Yellow); Mucus,Urine FEW /HPF; Protein,Urine <15 mg/dL mg/dL (Negative); Urobilinogen,Urine < 2.0 mg/dL (<2.0)
[2021-05-12 14:45] VITALS: BP 141/82
== END 2021-05-12 14:40 | disposition home or self-care (01) ==
LOC: ED 11:06
DX: K57.90 Diverticulosis of intestine, part unspecified, without perforation or abscess without bleeding (principal); R11.2 Nausea with vomiting, unspecified; I10 Essential (primary) hypertension; M17.10 Unilateral primary osteoarthritis, unspecified knee; Z90.49 Acquired absence of other specified parts of digestive tract
CPT/HCPCS: 36415; 74177; 80053; 81001; 83690; 85025; 96361; 96374; 96375; 99284; J1200; J2765; J3490; J7030; Q9967; Q0162

== ENCOUNTER 2021-05-13 09:34 | Emergency (ER) | payer BC ==
[2021-05-13] MEDS ORDERED: PANTOPRAZOLE 40 MG INJ IV ONE (09:43)
[2021-05-13] MEDS ORDERED: ONDANSETRON 4 MG/2 ML INJ IV ONE (09:43)
[2021-05-13] MEDS ORDERED: SODIUM CHLORIDE 0.9% 1000 ML 1,000 ML IV ONE (09:43)
--- NOTE | 2021-05-13 09:46 | Emergency Department Report ---
<TEMO GALVAN - Last Filed: 05/13/21 12:18> ED General Adult HPI - General Stated complaint: ETOH Time Seen by Provider: 05/13/21 09:41 Source: patient, EMS - History of Present Illness Initial comments: Patient is 60 years old male with history of anxiety and diverticulosis. Patient brought to the emergency room via EMS from home. Patient stated that he has been drinking a lot since yesterday to help with his anxiety. Patient is also complaining of diffuse abdominal pain associated with nausea and vomiting. He stated that he is unable to keep anything down. Patient was seen here yester day and had a CT abdomen and pelvis with IV contrast that showed diverticulosis with no diverticulitis and no other abnormalities. - Related Data Previous Rx's Medication Instructions Recorded Last Taken Type Famotidine [Pepcid] 20 mg PO BID #20 tablet 07/19/18 Unknown Rx Pantoprazole [Protonix TAB] 40 mg PO QDAY #30 tablet 07/19/18 Unknown Rx amLODIPine 5 mg PO DAILY #60 tab 08/16/18 Unknown Rx Ondansetron [Zofran Odt] 4 mg PO Q8HR PRN #14 tab.rapdis 04/28/20 Unknown Rx Dicyclomine [Bentyl] 10 mg PO BID PRN #12 capsule 05/12/21 Unknown Rx Ondansetron [Zofran Odt] 4 mg PO Q12H PRN #12 tab.rapdis 05/12/21 Unknown Rx Multivitamin with Folic Acid [[facility] 400 mcg PO QDAY #30 tablet 05/13/21 Unknown Rx One Daily Essential Tablet] Pantoprazole [Protonix TAB] 20 mg PO QDAY #30 tablet. 05/13/21 Unknown Rx chlordiazePOXIDE [Librium] 25 mg PO Q6H PRN #25 capsule 05/13/21 Unknown Rx Allergies Allergy/AdvReac Type Severity Reaction Status Date / Time No Known Allergies Allergy Verified 04/28/20 15:49 ED Review of Systems Comment: All other systems reviewed and negative Constitutional: denies: chills, fever Respiratory: denies: cough, shortness of breath, SOB with exertion, SOB at rest Cardiovascular: denies: chest pain, palpitations Gastrointestinal: abdominal pain, nausea, vomiting. denies: diarrhea, constipation, hematemesis Musculoskeletal: denies: back pain Neurological: denies: headache, weakness, numbness, paresthesias, confusion Psychiatric: anxiety. denies: depression, auditory hallucinations, visual hallucinations, homicidal thoughts, suicidal thoughts ED Past Medical Hx - Past Medical History Hx Hypertension: Yes Hx Congestive Heart Failure: No Hx Diabetes: No Hx Arthritis: Yes (knees) Hx Asthma: No Hx HIV: No - Surgical History Hx Cholecystectomy: Yes - Social History Smoking Status: Never Smoker Substance Use Type: Alcohol - Medications Home Medications: Home Medications Medication Instructions Recorded Confirmed Last Taken Type Famotidine [Pepcid] 20 mg PO BID #20 tablet 07/19/18 12/25/18 Unknown Rx Pantoprazole [Protonix TAB] 40 mg PO QDAY #30 tablet 07/19/18 12/25/18 Unknown Rx amLODIPine 5 mg PO DAILY #60 tab 08/16/18 12/25/18 Unknown Rx Ondansetron [Zofran Odt] 4 mg PO Q8HR PRN #14 tab.rapdis 04/28/20 Unknown Rx Dicyclomine [Bentyl] 10 mg PO BID PRN #12 capsule 05/12/21 Unknown Rx Ondansetron [Zofran Odt] 4 mg PO Q12H PRN #12 tab.rapdis 05/12/21 Unknown Rx Multivitamin with Folic Acid [[facility] 400 mcg PO QDAY #30 tablet 05/13/21 Unknown Rx One Daily Essential Tablet] Pantoprazole [Protonix TAB] 20 mg PO QDAY #30 tablet.dr 05/13/21 Unknown Rx chlordiazePOXIDE [Librium] 25 mg PO Q6H PRN #25 capsule 05/13/21 Unknown Rx ED Physical Exam - General General appearance: alert, in no apparent distress - Head Head exam: Present: atraumatic, normocephalic, normal inspection - Eye Eye exam: Present: normal appearance - ENT ENT exam: Present: normal exam, normal orophraynx - Neck Neck exam: Present: normal inspection, full ROM. Absent: tenderness, meningismus - Respiratory Respiratory exam: Present: normal lung sounds bilaterally - Cardiovascular Cardiovascular Exam: Present: regular rate, normal rhythm, normal heart sounds - GI/Abdominal GI/Abdominal exam: Present: soft, normal bowel sounds. Absent: distended, tenderness, guarding, rebound, rigid, organomegaly, mass, bruit, pulsatile mass, hernia - Extremities Exam Extremities exam: Present: normal inspection, full ROM, normal capillary refill. Absent: tenderness - Back Exam Back exam: Present: normal inspection, full ROM. Absent: CVA tenderness (R), CVA tenderness (L) - Neurological Exam Neurological exam: Present: alert, oriented X3, CN II-XII intact, normal gait, reflexes normal. Absent: motor sensory deficit - Psychiatric Psychiatric exam: Present: normal mood - Skin Skin exam: Present: warm, intact, normal color ED Medical Decision Making - Lab Data Result diagrams: 05/13/21 10:37 05/13/21 10:37 - Medical Decision Making Patient is 60 years old male with history of anxiety and diverticulosis. Patient brought to the emergency room via EMS from home. Patient stated that he has been drinking a lot since yesterday to help with his anxiety. Patient is also complaining of diffuse abdominal pain associated with nausea and vomiting. He stated that he is unable to keep anything down. Patient was seen here yesterday and had a CT abdomen and pelvis with IV contrast that showed diverticulosis with no diverticulitis and no other abnormalities. Labs reviewed and is unremarkable except for mild elevated lipase. Patient alcohol level is 0.37. Patient be observed in the ER until sober. ED Disposition Clinical Impression: Alcohol intoxication, Acute abdominal pain Disposition: HOME / SELF CARE / HOMELESS Is pt being admited?: No Condition: Good Instructions: Alcohol Intoxication Additional Instructions: Please avoid consumption of alcohol, Motrin, ibuprofen, Naprosyn, Aleve. Take the prescribed medications as needed and directed. Follow-up with a primary car e doctor within the next 2 weeks. Please return to the emergency room right away with new pain, worsened pain, migration of pain, projectile vomiting, change in mental status, confusion, inability tolerate liquid feeds, new, worsened or different symptoms not present on the initial emergency room evaluation Referrals: CHRISTINE DO MD [Staff Physician] - 3-5 Days <ORTIZ MOYA - Last Filed: 05/13/21 22:35> ED Review of Systems ROS: Stated complaint: ETOH Other details as noted in HPI ED Course Vital Signs 05/13/21 05/13/21 05/13/21 09:52 11:29 12:07 Temperature 98.2 F Pulse Rate 82 Respiratory 16 17 Rate Blood Pressure Blood Pressure 174/102 [Right] O2 Sat by Pulse 96 99 99 Oximetry 05/13/21 05/13/21 05/13/21 12:15 12:31 12:45 Temperature Pulse Rate Respiratory Rate Blood Pressure 133/88 133/88 133/88 Blood Pressure [Right] O2 Sat by Pulse 96 100 98 Oximetry 05/13/21 14:28 Temperature 97.2 F L Pulse Rate 90 Respiratory 21 Rate Blood Pressure Blood Pressure 154/76 [Right] O2 Sat by Pulse 99 Oximetry - Reevaluation(s) Reevaluation #1: 05/13/21 22:33 Patient seen and examined. He is awake, alert, oriented, sober, ambulatory with a steady gait. He is not homicidal or suicidal. He exhibits decision-making capacity. CT scan of the abdomen pelvis yesterday negative for acute findings. Laboratory studies unremarkable with exception of elevated blood alcohol level. He does not meet criteria for 1013 hold or involuntary confinement at this time. He does not have tongue fasciculations or tremors at this time. ED Medical Decision Making - Lab Data Result diagrams: 05/13/21 10:37 05/13/21 10:37 Vital Signs 05/13/21 05/13/21 05/13/21 09:52 11:29 12:07 Temperature 98.2 F Pulse Rate 82 Respiratory 16 17 Rate Blood Pressure Blood Pressure 174/102 [Right] O2 Sat by Pulse 96 99 99 Oximetry 05/13/21 05/13/21 05/13/21 12:15 12:31 12:45 Temperature Pulse Rate Respiratory Rate Blood Pressure 133/88 133/88 133/88 Blood Pressure [Right] O2 Sat by Pulse 96 100 98 Oximetry 05/13/21 14:28 Temperature 97.2 F L Pulse Rate 90 Respiratory 21 Rate Blood Pressure Blood Pressure 154/76 [Right] O2 Sat by Pulse 99 Oximetry Lab Results 05/13/21 05/13/21 05/13/21 Range/Units 10:37 10:37 10:37 WBC 6.8 (4.5-11.0) K/mm3 RBC 5.17 H (3.65-5.03) M/mm3 Hgb 15.9 H (11.8-15.2) gm/dl Hct 47.4 H (35.5-45.6) % MCV 92 (84-94) fl MCH 31 (28-32) pg MCHC 34 (32-34) % RDW 13.8 (13.2-15.2) % Plt Count 277 (140-440) K/mm3 Lymph % (Auto) 24.7 (13.4-35.0) % [place] % (Auto) 7.3 (0.0-7.3) % Eos % (Auto) 0.7 (0.0-4.3) % Baso % (Auto) 1.1 (0.0-1.8) % Lymph # (Auto) 1.7 (1.2-5.4) K/mm3 [place] # (Auto) 0.5 (0.0-0.8) K/mm3 Eos # (Auto) 0.0 (0.0-0.4) K/mm3 Baso # (Auto) 0.1 (0.0-0.1) K/mm3 Seg Neutrophils % 66.2 (40.0-70.0) % Seg Neutrophils # 4.5 (1.8-7.7) K/mm3 Sodium 141 (137-145) mmol/L Potassium 4.5 (3.6-5.0) mmol/L Chloride 103.7 (98-107) mmol/L Carbon Dioxide 26 (22-30) mmol/L Anion Gap 16 mmol/L BUN 13 (9-20) mg/dL Creatinine 0.9 (0.8-1.3) mg/dL Estimated GFR > 60 ml/min BUN/Creatinine Ratio 14 % Glucose 100 (75-100) mg/dL Calcium 8.1 L (8.4-10.2) mg/dL Total Bilirubin 0.70 (0.1-1.2) mg/dL Direct Bilirubin 0.2 (0-0.2) mg/dL Indirect Bilirubin 0.5 mg/dL AST 60 H (5-40) units/L ALT 50 (7-56) units/L Alkaline Phosphatase 67 (35-129) units/L Total Protein 6.4 (6.3-8.2) g/dL Albumin 4.2 (3.9-5) g/dL Albumin/Globulin Ratio 1.9 % Lipase 63 H (13-60) units/L Urine Color (Yellow) Urine Turbidity (Clear) Urine pH (5.0-7.0) Ur Specific [place] (1.003-1.030) Urine Protein (Negative) mg/dL Urine Glucose (UA) (Negative) mg/dL Urine Ketones (Negative) mg/dL Urine Blood (Negative) Urine Nitrite (Negative) Urine Bilirubin (Negative) Urine Urobilinogen (<2.0) mg/dL Ur Leukocyte Esterase (Negative) Urine WBC (Auto) (0.0-6.0) /HPF Urine RBC (Auto) (0.0-6.0) /HPF Plasma/Serum Alcohol 0.37 H (0-0.07) % 05/13/ Range/Units 12:20 WBC (4.5-11.0) K/mm3 RBC (3.65-5.03) M/mm3 Hgb (11.8-15.2) gm/dl Hct (35.5-45.6) % MCV (84-94) fl MCH (28-32) pg MCHC (32-34) % RDW (13.2-15.2) % Plt Count (140-440) K/mm3 Lymph % (Auto) (13.4-35.0) % [place] % (Auto) (0.0-7.3) % Eos % (Auto) (0.0-4.3) % Baso % (Auto) (0.0-1.8) % Lymph # (Auto) (1.2-5.4) K/mm3 [place] # (Auto) (0.0-0.8) K/mm3 Eos # (Auto) (0.0-0.4) K/mm3 Baso # (Auto) (0.0-0.1) K/mm3 Seg Neutrophils % (40.0-70.0) % Seg Neutrophils # (1.8-7.7) K/mm3 Sodium (137-145) mmol/L Potassium (3.6-5.0) mmol/L Chloride (98-107) mmol/L Carbon Dioxide (22-30) mmol/L Anion Gap mmol/L BUN (9-20) mg/dL Creatinine (0.8-1.3) mg/dL Estimated GFR ml/min BUN/Creatinine Ratio % Glucose (75-100) mg/dL Calcium (8.4-10.2) mg/dL Total Bilirubin (0.1-1.2) mg/dL Direct Bilirubin (0-0.2) mg/dL Indirect Bilirubin mg/dL AST (5-40) units/L ALT (7-56) units/L Alkaline Phosphatase (35-129) units/L Total Protein (6.3-8.2) g/dL Albumin (3.9-5) g/dL Albumin/Globulin Ratio % Lipase (13-60) units/L Urine Color Yellow (Yellow) Urine Turbidity Clear (Clear) Urine pH 6.0 (5.0-7.0) Ur Specific [place] 1.012 (1.003-1.030) Urine Protein <15 mg/dl (Negative) mg/dL Urine Glucose (UA) Neg (Negative) mg/dL Urine Ketones Neg (Negative) mg/dL Urine Blood Mod (Negative) Urine Nitrite Neg (Negative) Urine Bilirubin Neg (Negative) Urine Urobilinogen < 2.0 (<2.0) mg/dL Ur Leukocyte Esterase Neg (Negative) Urine WBC (Auto) < 1.0 (0.0-6.0) /HPF Urine RBC (Auto) 5.0 (0.0-6.0) /HPF Plasma/Serum Alcohol (0-0.07) % - Radiology Data Radiology results: pending, report reviewed, [place] [address] Cat Scan Report Signed Patient: GRETA PINEDO MR# : [id number] : 1960 Acct:[id number] Age/Sex: 60 / M ADM Date: 05/12/21 Loc: ED Attending Dr: Ordering Physician: DELANEY MILLS NP Date of Service: 05/12/21 Procedure(s): CT abdomen pelvis w con Accession Number(s): [id number] cc: DELANEY MILLS NP CT ABDOMEN AND PELVIS WITH CONTRAST INDICATION / CLINICAL INFORMATION: n/v abd pain. TECHNIQUE: Axial CT images were obtained through the abdomen and pelvis after 100 cc of Omnipaque [address] scans at this location are performed using CT dose reduction for ALARA by means of automated exposure control. COMPARISON: 04/28/2020 FINDINGS: LOWER CHEST: No significant abnormality. AORTA / ARTERIES: No significant abnormality. IVC / VEINS: No significant abnormality. LYMPH NODES: No significant adenopathy. COLON: Diverticulosis without acute inflammation. APPENDIX: No significant abnormality. STOMACH / SMALL BOWEL: No significant abnormality. PERITONEUM: No free fluid. No free air. No fluid collection. LIVER: No significant abnormality. GALLBLADDER: Cholecystectomy. BILE DUCTS: No significant abnormality. PANCREAS: No significant abnormality. SPLEEN: No significant abnormality. ADRENALS: No significant abnormality. RIGHT KIDNEY / URETER: No significant abnormality. LEFT KIDNEY / URETER: No significant abnormality. URINARY BLADDER: No significant abnormality. REPRODUCTIVE ORGANS: No significant abnormality. SKELETAL SYSTEM: No significant abnormality. ADDITIONAL FINDINGS: None. IMPRESSION: 1. No acute intra-abdominal or intrapelvic pathology. 2. Diverticulosis without diverticulitis. Signer Name: Pete Roland DO Signed: 05/12/2021 1:48 PM Workstation Name: [email or web address] Transcribed By: KEVIN Dictated By: PETE ROLAND DO Electronically Authenticated By: PETE ROLAND DO Signed Date/Time: 05/12/21 1348 DD/ 1345 Critical care attestation.: If time is entered above; I have spent that time in minutes in the direct care of this critically ill patient, excluding procedure time. ED Disposition Is pt being admited?: No Does the pt Need Aspirin: No
[2021-05-13 11:05] LABS: Basophils # (Auto) 0.1 K/mm3 (0.0-0.1); Basophils % (Auto) 1.1 % (0.0-1.8); Eosinophils % (Auto) 0.7 % (0.0-4.3); Hematocrit 47.4 % (35.5-45.6); Hemoglobin 15.9 gm/dl (11.8-15.2); Lymphocytes # (Auto) 1.7 K/mm3 (1.2-5.4); Lymphocytes % (Auto) 24.7 % (13.4-35.0); Mean Corpuscular HGB Conc 34 % (32-34); Mean Corpuscular Volume 92 fl (84-94); Monocytes # (Auto) 0.5 K/mm3 (0.0-0.8); Monocytes % (Auto) 7.3 % (0.0-7.3); Platelet Count 277 K/mm3 (140-440); Red Blood Count 5.17 M/mm3 (3.65-5.03); Red Cell Distribution Width 13.8 % (13.2-15.2)
[2021-05-13 11:22] LABS: Alanine Aminotransferase 50 units/L (7-56); Albumin 4.2 g/dL (3.9-5); BUN/Creatinine Ratio 14; Bilirubin,Direct 0.2 mg/dL (0-0.2); Blood Urea Nitrogen 13 mg/dL (9-20); Calcium 8.1 mg/dL (8.4-10.2); Hemolysis Index 5
[2021-05-13] MEDS ORDERED: LORazepam 2 MG/ML VIAL IV ONE (13:10)
[2021-05-13 13:48] LABS: Bilirubin,Urine NEG (Negative); Blood,Urine MOD (Negative); Color,Urine Yellow (Yellow); Protein,Urine <15 mg/dL mg/dL (Negative); Urobilinogen,Urine < 2.0 mg/dL (<2.0); WBC,Urine < 1.0 /HPF (0.0-6.0)
[2021-05-13] MEDS ORDERED: chlordiazePOXIDE 25 MG CAP PO ONE (17:55)
[2021-05-13] MEDS ORDERED: FAMOTIDINE 20 MG/2 ML INJ IV ONE (17:57)
[2021-05-13 20:29] VITALS: BP 133/88
== END 2021-05-13 22:30 | disposition home or self-care (01) ==
LOC: ED 09:34 → EEVIPCON 09:34 → ED 22:30
DX: F10.129 Alcohol abuse with intoxication, unspecified (principal); R10.0 Acute abdomen; F17.200 Nicotine dependence, unspecified, uncomplicated; I10 Essential (primary) hypertension
CPT/HCPCS: 36415; 80048; 80076; 81001; 83690; 85025; 96361; 96374; 96375; 99284; C9113; J2060; J2405; J3490; J7030; 80320; Q0162; G0480

== ENCOUNTER 2021-05-28 14:11 | Emergency (ER) | payer BC ==
[2021-05-28 16:07] VITALS: BP 146/80
[2021-05-28 16:44] LABS: Basophils # (Auto) 0.1 K/mm3 (0.0-0.1); Basophils % (Auto) 0.6 % (0.0-1.8); Eosinophils # (Auto) 0.1 K/mm3 (0.0-0.4); Eosinophils % (Auto) 0.8 % (0.0-4.3); Hematocrit 47.3 % (35.5-45.6); Hemoglobin 15.9 gm/dl (11.8-15.2); Lymphocytes # (Auto) 1.6 K/mm3 (1.2-5.4); Lymphocytes % (Auto) 12.8 % (13.4-35.0); Mean Corpuscular HGB Conc 34 % (32-34); Mean Corpuscular Volume 92 fl (84-94); Monocytes # (Auto) 0.6 K/mm3 (0.0-0.8); Monocytes % (Auto) 5.3 % (0.0-7.3); Platelet Count 508 K/mm3 (140-440); Red Blood Count 5.13 M/mm3 (3.65-5.03); Red Cell Distribution Width 14.6 % (13.2-15.2)
[2021-05-28 17:05] LABS: Alanine Aminotransferase 67 units/L (7-56); Albumin 4.2 g/dL (3.9-5); BUN/Creatinine Ratio 14; Blood Urea Nitrogen 13 mg/dL (9-20); Calcium 8.4 mg/dL (8.4-10.2); Hemolysis Index 21
--- NOTE | 2021-05-28 20:48 | Emergency Department Report ---
ED Medical Clearance HPI - General Chief complaint: Medical Clearance Stated complaint: MEDICAL CLEARANCE Time Seen by Provider: 05/28/21 20:08 Source: patient Mode of arrival: Ambulatory - History of Present Illness Initial comments: Patient is 60 years old male with history of chronic alcoholism. Patient presented to the ER asking for medical clearance for alcohol rehab. Patient stated that he already talked [facility] and asked him to come here for medical clearance. Patient stated that last drink was this morning. Patient denied any suicidal homicidal ideation. No visual or auditory hallucination. Patient also denied any chest pain or shortness of breath. No abdominal pain. MD Complaint: medical clearance request Home medications: Previous Rx's Medication Instructions Recorded Last Taken Type Famotidine [Pepcid] 20 mg PO BID #20 tablet 07/19/18 Unknown Rx Pantoprazole [Protonix TAB] 40 mg PO QDAY #30 tablet 07/19/18 Unknown Rx amLODIPine 5 mg PO DAILY #60 tab 08/16/18 Unknown Rx Ondansetron [Zofran Odt] 4 mg PO Q8HR PRN #14 tab.rapdis 04/28/20 Unknown Rx Dicyclomine [Bentyl] 10 mg PO BID PRN #12 capsule 05/12/21 Unknown Rx Ondansetron [Zofran Odt] 4 mg PO Q12H PRN #12 tab.rapdis 05/12/21 Unknown Rx Multivitamin with Folic Acid [[facility] 400 mcg PO QDAY #30 tablet 05/13/21 Unknown Rx One Daily Essential Tablet] Pantoprazole [Protonix TAB] 20 mg PO QDAY #30 tablet. 05/13/21 Unknown Rx chlordiazePOXIDE [Librium] 25 mg PO Q6H PRN #25 capsule 05/13/21 Unknown Rx Allergies/Adverse reactions: Allergies Allergy/AdvReac Type Severity Reaction Status Date / Time No Known Allergies Allergy Verified 05/28/21 16:06 ED Review of Systems ROS: Stated complaint: MEDICAL CLEARANCE Other details as noted in HPI Comment: All other systems reviewed and negative Constitutional: denies: chills, fever Respiratory: denies: cough, shortness of breath, SOB with exertion, SOB at rest Cardiovascular: denies: chest pain, palpitations Gastrointestinal: denies: abdominal pain, nausea, vomiting Musculoskeletal: denies: back pain Neurological: denies: headache, weakness, numbness, paresthesias, confusion Psychiatric: denies: anxiety, depression, auditory hallucinations, visual hallucinations, homicidal thoughts, suicidal thoughts ED Past Medical Hx - Past Medical History Previous Medical History?: Yes Hx Hypertension: Yes Hx Congestive Heart Failure: No Hx Diabetes: No Hx Arthritis: Yes (knees) Hx Asthma: No Hx HIV: No - Surgical History Hx Cholecystectomy: Yes - Social History Smoking Status: Never Smoker Substance Use Type: Alcohol - Medications Home Medications: Home Medications Medication Instructions Recorded Confirmed Last Taken Type Famotidine [Pepcid] 20 mg PO BID #20 tablet 07/19/18 12/25/18 Unknown Rx Pantoprazole [Protonix TAB] 40 mg PO QDAY #30 tablet 07/19/18 12/25/18 Unknown Rx amLODIPine 5 mg PO DAILY #60 tab 08/16/18 12/25/18 Unknown Rx Ondansetron [Zofran Odt] 4 mg PO Q8HR PRN #14 tab.rapdis 04/28/20 Unknown Rx Dicyclomine [Bentyl] 10 mg PO BID PRN #12 capsule 05/12/21 Unknown Rx Ondansetron [Zofran Odt] 4 mg PO Q12H PRN #12 tab.rapdis 05/12/21 Unknown Rx Multivitamin with Folic Acid [[facility] 400 mcg PO QDAY #30 tablet 05/13/21 Unknown Rx One Daily Essential Tablet] Pantoprazole [Protonix TAB] 20 mg PO QDAY #30 tablet.dr 05/13/21 Unknown Rx chlordiazePOXIDE [Librium] 25 mg PO Q6H PRN #25 capsule 05/13/21 Unknown Rx ED Physical Exam - General Limitations: No Limitations General appearance: alert, in no apparent distress - Head Head exam: Present: atraumatic, normocephalic, normal inspection - Eye Eye exam: Present: normal appearance - ENT ENT exam: Present: normal exam, normal orophraynx, mucous membranes moist - Neck Neck exam: Present: normal inspection, full ROM. Absent: tenderness, meningismus - Respiratory Respiratory exam: Present: normal lung sounds bilaterally - Cardiovascular Cardiovascular Exam: Present: regular rate, normal rhythm, normal heart sounds - GI/Abdominal GI/Abdominal exam: Present: soft, normal bowel sounds. Absent: distended, tenderness, guarding, rebound, rigid, organomegaly, mass, bruit, pulsatile mass, hernia - Extremities Exam Extremities exam: Present: normal inspection, full ROM, normal capillary refill. Absent: tenderness - Back Exam Back exam: Present: normal inspection, full ROM. Absent: CVA tenderness (R), CVA tenderness (L) - Neurological Exam Neurological exam: Present: alert, oriented X3, CN II-XII intact, normal gait, reflexes normal. Absent: motor sensory deficit - Psychiatric Psychiatric exam: Present: normal mood. Absent: homicidal ideation, suicidal ideation - Skin Skin exam: Present: warm, intact, normal color ED Course Vital Signs 05/28/21 16:03 Temperature 97.5 F L Pulse Rate 109 H Respiratory 16 Rate Blood Pressure 146/80 O2 Sat by Pulse 97 Oximetry ED Medical Decision Making - Lab Data Result diagrams: 05/28/21 16:21 05/28/21 16:21 - Medical Decision Making Patient is 60 years old male with history of chronic alcoholism. Patient presented to the ER asking for medical clearance for alcohol rehab. Patient stated that he already talked to [facility] and asked him to come here for medical clearance. Patient stated that last drink was this morning. Patient denied any suicidal homicidal ideation. No visual or auditory hallucination. Patient also denied any chest pain or shortness of breath. No abdominal pain. Patient remained stable in the ER with stable vital sign. Labs reviewed and is unremarkable except for alcohol level of 128 however patient is sober patient is alert oriented x3 in no acute distress able to make sound decision. Patient is accompanied by his friend who stated that he is driving him to [facility]. ED Disposition Clinical Impression: Medical clearance for psychiatric admission, Chronic alcoholism Disposition: HOME / SELF CARE / HOMELESS Is pt being admited?: No Condition: Stable Instructions: Alcohol Abuse and Dependence Information, Adult Referrals: PRIMARY CARE, [Referring] - 3-5 Days
== END 2021-05-28 20:56 | disposition home or self-care (01) ==
LOC: ED 14:11
DX: Z04.6 Encounter for general psychiatric examination, requested by authority (principal); F10.20 Alcohol dependence, uncomplicated; I10 Essential (primary) hypertension; M19.90 Unspecified osteoarthritis, unspecified site; Z90.49 Acquired absence of other specified parts of digestive tract
CPT/HCPCS: 36415; 80053; 80320; 85025; 99283; G0480

== ENCOUNTER 2021-06-26 15:31 | Emergency (ER) | payer SELFPAY ==
[2021-06-26 19:00] LABS: Basophils # (Auto) 0.1 K/mm3 (0.0-0.1); Eosinophils % (Auto) 0.1 % (0.0-4.3); Hematocrit 46.1 % (35.5-45.6); Hemoglobin 15.7 gm/dl (11.8-15.2); Lymphocytes # (Auto) 1.1 K/mm3 (1.2-5.4); Lymphocytes % (Auto) 17.9 % (13.4-35.0); Mean Corpuscular HGB Conc 34 % (32-34); Mean Corpuscular Volume 93 fl (84-94); Monocytes # (Auto) 0.4 K/mm3 (0.0-0.8); Platelet Count 452 K/mm3 (140-440); Red Blood Count 4.96 M/mm3 (3.65-5.03); Red Cell Distribution Width 15.5 % (13.2-15.2)
[2021-06-26 19:03] LABS: BUN/Creatinine Ratio 23; Blood Urea Nitrogen 21 mg/dL (9-20); Calcium 9.1 mg/dL (8.4-10.2); Hemolysis Index 12
[2021-06-26 20:18] LABS: Bilirubin,Urine NEG (Negative); Blood,Urine NEG (Negative); Color,Urine Yellow (Yellow); Hyaline Casts,Urine 1 /LPF; Mucus,Urine FEW /HPF; Urobilinogen,Urine < 2.0 mg/dL (<2.0)
[2021-06-26 20:27] LABS: Amphetamine Screen,Urine Negative; Cannabinoid Screen,Urine Negative; Cocaine Screen,Urine Negative; Methadone Screen,Urine Negative; Opiate Screen,Urine Negative
[2021-06-26 20:47] LABS: Benzodiazepines Screen,Urine Positive
[2021-06-26] MEDS ORDERED: LORazepam 1 MG TAB PO ONE (21:19)
--- NOTE | 2021-06-26 21:50 | Emergency Department Report ---
ED Psych HPI - General Chief Complaint: Psych Stated Complaint: MENTAL HEALTH EVAL Time Seen by Provider: 06/26/21 18:04 Source: patient Mode of arrival: Ambulatory - History of Present Illness Initial Comments: Pt states that he wants a mental health evaluation, he states that he is having SI with no plan and no hx of attempts. Pt denies HI. MD Complaint: suicidal ideation, feels depressed -: Gradual Quality: constant Improves With: none Worsens With: none Treatments Prior to Arrival: none - Related Data Previous Rx's Medication Instructions Recorded Last Taken Type Famotidine [Pepcid] 20 mg PO BID #20 tablet 07/19/18 Unknown Rx Pantoprazole [Protonix TAB] 40 mg PO QDAY #30 tablet 07/19/18 Unknown Rx amLODIPine 5 mg PO DAILY #60 tab 08/16/18 Unknown Rx Ondansetron [Zofran ODT TAB] 4 mg PO Q8HR PRN #14 tab.rapdis 04/28/20 Unknown Rx Ondansetron [Zofran Odt] 4 mg PO Q12H PRN #12 tab.rapdis 05/12/21 Unknown Rx Gabapentin 100 mg PO BID 30 Days #60 capsule 06/27/21 Unknown Rx Multivitamin with Folic Acid [[facility] 400 mcg PO QDAY #30 tablet 06/27/21 Unknown Rx One Daily Essential Tablet] Pantoprazole [Protonix TAB] 20 mg PO QDAY #30 tablet.dr 06/27/21 Unknown Rx chlordiazePOXIDE [Librium] 25 mg PO Q6H PRN #25 capsule 06/27/21 Unknown Rx Allergies Allergy/AdvReac Type Severity Reaction Status Date / Time No Known Allergies Allergy Verified 05/28/21 16:06 ED Review of Systems ROS: Stated complaint: MENTAL HEALTH EVAL Other details as noted in HPI Constitutional: denies: chills, fever Eyes: denies: eye pain, eye discharge, vision change ENT: denies: ear pain, throat pain Respiratory: denies: cough, shortness of breath, wheezing Cardiovascular: denies: chest pain, palpitations Endocrine: no symptoms reported Gastrointestinal: denies: abdominal pain, nausea, diarrhea Genitourinary: denies: urgency, dysuria Musculoskeletal: denies: back pain, joint swelling, arthralgia Skin: denies: rash, lesions Neurological: denies: headache, weakness, paresthesias Psychiatric: denies: anxiety, depression Hematological/Lymphatic: denies: easy bleeding, easy bruising ED Past Medical Hx - Past Medical History Hx Hypertension: Yes Hx Congestive Heart Failure: No Hx Diabetes: No Hx Arthritis: Yes (knees) Hx Asthma: No Hx HIV: No - Surgical History Hx Cholecystectomy: Yes - Social History Smoking Status: Former Smoker Substance Use Type: Alcohol - Medications Home Medications: Home Medications Medication Instructions Recorded Confirmed Last Taken Type Famotidine [Pepcid] 20 mg PO BID #20 tablet 07/19/18 12/25/18 Unknown Rx Pantoprazole [Protonix TAB] 40 mg PO QDAY #30 tablet 07/19/18 12/25/18 Unknown Rx amLODIPine 5 mg PO DAILY #60 tab 08/16/18 12/25/18 Unknown Rx Ondansetron [Zofran ODT TAB] 4 mg PO Q8HR PRN #14 tab.rapdis 04/28/20 Unknown Rx Ondansetron [Zofran Odt] 4 mg PO Q12H PRN #12 tab.rapdis 05/12/21 Unknown Rx Gabapentin 100 mg PO BID 30 Days #60 capsule 06/27/21 Unknown Rx Multivitamin with Folic Acid [[facility] 400 mcg PO QDAY #30 tablet 06/27/21 Unknown Rx One Daily Essential Tablet] Pantoprazole [Protonix TAB] 20 mg PO QDAY #30 tablet.dr 06/27/21 Unknown Rx chlordiazePOXIDE [Librium] 25 mg PO Q6H PRN #25 capsule 06/27/21 Unknown Rx ED Physical Exam - General Limitations: No Limitations General appearance: alert, anxious - Head Head exam: Present: atraumatic, normocephalic - Eye Eye exam: Present: normal appearance - ENT ENT exam: Present: mucous membranes moist - Neck Neck exam: Present: normal inspection - Respiratory Respiratory exam: Present: normal lung sounds bilaterally. Absent: respiratory distress - Cardiovascular Cardiovascular Exam: Present: regular rate, normal rhythm. Absent: systolic murmur, diastolic murmur, rubs, gallop - GI/Abdominal GI/Abdominal exam: Present: soft, normal bowel sounds - Rectal Rectal exam: Present: deferred - Extremities Exam Extremities exam: Present: normal inspection - Back Exam Back exam: Present: normal inspection - Neurological Exam Neurological exam: Present: oriented X3 - Psychiatric Psychiatric exam: Present: normal affect, depressed, anxious, suicidal ideation - Skin Skin exam: Present: warm, dry, intact, normal color. Absent: rash ED Course Vital Signs 06/26/21 06/26/21 06/27/21 17:24 17:49 01:31 Temperature 97.8 F 98.4 F 98.7 F Pulse Rate 101 H 102 H 88 Respiratory 18 16 19 Rate Blood Pressure 146/85 148/63 Blood Pressure 148/63 142/95 [Right] O2 Sat by Pulse 99 99 95 Oximetry 06/27/21 06/27/21 06/27/21 07:00 09:02 13:29 Temperature 98.9 F Pulse Rate 88 80 80 Respiratory 17 18 17 Rate Blood Pressure Blood Pressure 132/69 153/65 134/60 [Right] O2 Sat by Pulse 99 99 99 Oximetry ED Medical Decision Making - Lab Data Result diagrams: 06/26/21 18:16 06/26/21 18:16 Critical care attestation.: If time is entered above; I have spent that time in minutes in the direct care of this critically ill patient, excluding procedure time. ED Disposition Clinical Impression: Encounter for medical screening examination, Alcohol dependence, Encounter for behavioral health screening Disposition: 01 HOME / SELF CARE / HOMELESS Is pt being admited?: No Does the pt Need Aspirin: No Condition: Good Additional Instructions: Avoid consumption of Motrin, ibuprofen, Naprosyn, Aleve, alcohol, tobacco and smoke products. Follow-up with outpatient resources that have been provided to the patient. Follow-up with a primary care doctor within the next month. Follow-up with your mental health specialist within the next week. Please return to the emergency room right away with new pain, worsened pain, migration of pain, projectile vomiting, change in mental status, confusion, inability tolerate liquid feeds, new, worsened or different symptoms not present on the initial emergency room evaluation Professional and Agency Contacts To help [facility] (15/09) [place] Crisis Line: Suicide Prevention Line: Crisis Text Line: Text START to 187000 Emergency: 911 Outpatient COMMUNITY Behavioral Health Resources: [facility]: [facility] [address] [place] [id number] [facility] [address] [place] [address] Thursday thru Thursday - 8am - 5pm Call to schedule an assessment for mental health and substance abuse programs [facility] Address: [address] [place] [address] Thursday thru Thursday- 7am-2pm [facility] Address: [address], [place] [address] Thursday thrthursday: 8:30AM-5PM Prescriptions: Multivitamin with Folic Acid [[facility]vs One Daily Essential Tablet] 400 mcg PO QDAY #30 tablet Gabapentin 100 mg PO BID 30 Days #60 capsule chlordiazePOXIDE [Librium] 25 mg PO Q6H PRN #25 capsule PRN Reason: Alcohol Withdrawal Pantoprazole [Protonix TAB] 20 mg PO QDAY #30 tablet.dr Referrals: [facility] [Outside] - 3-5 Days [facility] [Outside] - 3-5 Days JUAN MAE MD [Primary Care Provider] - 3-5 Days
[2021-06-27] MEDS ORDERED: LORazepam 2 MG/ML VIAL ONE ×2 (00:51→07:04)
[2021-06-27] MEDS ORDERED: LORazepam 2 MG/ML VIAL IM ONE ×2 (01:00→07:03)
[2021-06-27] MEDS ORDERED: SIMETHICONE 80 MG CHEW TAB PO ONE (03:52)
[2021-06-27] MEDS ORDERED: LORazepam 2 MG/ML VIAL IM STA (09:58)
--- NOTE | 2021-06-27 11:48 | Consultation ---
History of Present Illness - Reason for Consult Consult date: 06/27/21 Reason for consult: mental health evaluation - History of Present Psychiatric Illness The patient is a 60 year old male with history of depression and alcohol use disorder. In my encounter with the patient, he is calm, alert and oriented x3. The patient states he was having a bad day. He endorses ongoing depression, states he has been consuming a about a pint of Alisha daily for the past 2 weeks. He reports been admitted for detoxification x3 and rehab x3; reports longest sobriety period as 2 years. He denies history of seizures and no tremors noted. he states " I feel stupid, I start slow and over do it." The patient denies any current suicidal/homicidal ideation and denies hallucinations. PAST PSYCHIATRIC HISTORY Diagnoses: Depression, Alcohol use disorder Suicide attempts or Self-harm behavior: Yes Prior psychiatric hospitalizations: Yes Substance Abuse history: Denies Previous psychiatric medications tried: Denies Outpatient treatment: Unknown PAST MEDICAL HISTORY: None reported Family Psychiatric History: None reported or documented SOCIAL HISTORY Marital Status: Single Living Arrangements: Lives with alone Employment Status:Unemployed Access to guns/weapons: Denies Education: 12th grade History of Abuse: Denies Legal History: unknown REVIEW OF SYSTEMS Constitutional: Negative for weight loss ENT: Negative for stridor Respiratory: Negative for cough or hemoptysis All other systems reviewed and are negative MENTAL STATUS EXAMINATION General Appearance and Behavior: Age appropriate, good hygiene, wearing appropr iate clothes, good eye contact, anxious, cooperative Cooperation: Participating/engaged Psychomotor Behavior: Psychomotor normal Mood:depressed Affect and affective range: congruent with stated mood Thought Process: Goal directed Thought Content: Reality oriented Speech: Normal tone and pace Suicidal Ideation:Denies Homicidal Ideation: Denies Hallucinations: Denies Delusions: None Impulse Control: Limited Insight and Judgment: Limited insight and judgment Memory: Limited Attention: attentive Orientation: Alert, oriented Diagnoses: (1) Major depressive disorder (2) Alcohol use disorder Treatment Plan DC 1013 Continue CIWA protocol Continue home meds Gabapentin 100mg po BID PSYCHOTHERAPY: Supportive psychotherapy provided MEDICAL: Per primary team DELIRIUM PRECAUTIONS: Please re-orient patient frequently, keep lights on during the day, and minimize benzodiazepines and opiates as these medications could worsen patient's confusion. CUTTING DEPARTMENT SUPERVISOR: Per medical team DISPOSITION:Do not recommend acute psychiatric inpatient treatment. Felt Pad Cutter will provide patient with psychiatric outpatient resources and safety plan. Will sign off. Thank you for the consult. Case staffed with Dr. Gutierrez Medications and Allergies Medications and Allergies Allergies Allergy/AdvReac Type Severity Reaction Status Date / Time No Known Allergies Allergy Verified 05/28/21 16:06 Home Medications Medication Instructions Recorded Confirmed Last Taken Type Famotidine [Pepcid] 20 mg PO BID #20 tablet 07/19/18 12/25/18 Unknown Rx Pantoprazole [Protonix TAB] 40 mg PO QDAY #30 tablet 07/19/18 12/25/18 Unknown Rx amLODIPine 5 mg PO DAILY #60 tab 08/16/18 12/25/18 Unknown Rx Ondansetron [Zofran Odt] 4 mg PO Q8HR PRN #14 tab.rapdis 04/28/20 Unknown Rx Dicyclomine [Bentyl] 10 mg PO BID PRN #12 capsule 05/12/21 Unknown Rx Ondansetron [Zofran Odt] 4 mg PO Q12H PRN #12 tab.rapdis 05/12/21 Unknown Rx Multivitamin with Folic Acid [[facility]vs 400 mcg PO QDAY #30 tablet 05/13/21 Unknown Rx One Daily Essential Tablet] Pantoprazole [Protonix TAB] 20 mg PO QDAY #30 tablet. 05/13/21 Unknown Rx chlordiazePOXIDE [Librium] 25 mg PO Q6H PRN #25 capsule 05/13/21 Unknown Rx Gabapentin 100 mg PO BID 30 Days #60 capsule 06/27/21 Unknown Rx Mental Status Exam - Vital signs Last Vital Signs Temp 98.9 F 06/27/21 09:02 Pulse 80 06/27/21 09:02 Resp 18 06/27/21 09:02 BP 153/65 06/27/21 09:02 Pulse Ox 99 06/27/21 09:02 Results Result Diagrams: 06/26/21 18:16 06/26/21 18:16 Abnormal lab results 06/26/21 06/26/21 06/26/21 Range/Units 18:16 18:16 18:16 Hgb 15.7 H (11.8-15.2) gm/dl Hct 46.1 H (35.5-45.6) % RDW 15.5 H (13.2-15.2) % Plt Count 452 H (140-440) K/mm3 Baso % (Auto) 2.0 H (0.0-1.8) % Lymph # (Auto) 1.1 L (1.2-5.4) K/mm3 Seg Neutrophils % 73.0 H (40.0-70.0) % BUN 21 H (9-20) mg/dL Glucose 109 H (75-100) mg/dL Salicylates < 0.3 L (2.8-20.0) mg/dL Acetaminophen (10.0-30.0) ug/mL 06/26/21 Range/Units 18:16 Hgb (11.8-15.2) gm/dl Hct (35.5-45.6) % RDW (13.2-15.2) % Plt Count (140-440) K/mm3 Baso % (Auto) (0.0-1.8) % Lymph # (Auto) (1.2-5.4) K/mm3 Seg Neutrophils % (40.0-70.0) % BUN (9-20) mg/dL Glucose (75-100) mg/dL Salicylates (2.8-20.0) mg/dL Acetaminophen 5.0 L (10.0-30.0) ug/mL All other labs normal.
--- NOTE | 2021-06-27 12:11 | Event Note ---
Date: 06/27/21 The patient was evaluated in the emergency department for symptoms described in the history of present illness. He/she was evaluated in the context of the global COVID-19 pandemic, which necessitated consideration that the patient might be at risk for infection with the virus that causes COVID-19. Institutional protocols and algorithms that pertain to the evaluation of patients at risk for COVID-19 are in a state of rapid change based on information released by regulatory bodies including the CDC and federal and state organizations. These policies and algorithms were followed during the patient's care in the emergency department. Please note that these policies, procedures and recommendations changed on a rapid basis. Laboratory studies, vital signs, nursing documentation, ER documentation, and psychiatric documentation are reviewed and appreciated. Nursing team reports no acute events this morning or concerns. The patient is awake and ambulating and eating breakfast, and denies physical pain to myself The patient was deemed medically suitable for psychiatric disposition and placement during his initial ER evaluation. The patient continues to remain medically suitable for psychiatric placement and disposition. The psychiatric team have advised that this patient does not meet criteria for 1013 hold or involuntary confinement. Discharged with outpatient medications and resources. Vital Signs 06/26/21 06/26/21 06/27/21 17:24 17:49 01:31 Temperature 97.8 F 98.4 F 98.7 F Pulse Rate 101 H 102 H 88 Respiratory 18 16 19 Rate Blood Pressure 146/85 148/63 Blood Pressure 148/63 142/95 [Right] O2 Sat by Pulse 99 99 95 Oximetry 06/27/21 06/27/21 07:00 09:02 Temperature 98.9 F Pulse Rate 88 80 Respiratory 17 18 Rate Blood Pressure Blood Pressure 132/69 153/65 [Right] O2 Sat by Pulse 99 99 Oximetry Lab Results 06/26/21 06/26/21 06/26/21 Range/Units 18:16 18:16 18:16 WBC 6.2 (4.5-11.0) K/mm3 RBC 4.96 (3.65-5.03) M/mm3 Hgb 15.7 H (11.8-15.2) gm/dl Hct 46.1 H (35.5-45.6) % MCV 93 (84-94) fl MCH 32 (28-32) pg MCHC 34 (32-34) % RDW 15.5 H (13.2-15.2) % Plt Count 452 H (140-440) K/mm3 Lymph % (Auto) 17.9 (13.4-35.0) % [place] % (Auto) 7.0 (0.0-7.3) % Eos % (Auto) 0.1 (0.0-4.3) % Baso % (Auto) 2.0 H (0.0-1.8) % Lymph # (Auto) 1.1 L (1.2-5.4) K/mm3 [place] # (Auto) 0.4 (0.0-0.8) K/mm3 Eos # (Auto) 0.0 (0.0-0.4) K/mm3 Baso # (Auto) 0.1 (0.0-0.1) K/mm3 Seg Neutrophils % 73.0 H (40.0-70.0) % Seg Neutrophils # 4.5 (1.8-7.7) K/mm3 Sodium 139 (137-145) mmol/L Potassium 4.5 (3.6-5.0) mmol/L Chloride 98.8 (98-107) mmol/L Carbon Dioxide 22 (22-30) mmol/L Anion Gap 23 mmol/L BUN 21 H (9-20) mg/dL Creatinine 0.9 (0.8-1.3) mg/dL Estimated GFR > 60 ml/min BUN/Creatinine Ratio 23 % Glucose 109 H (75-100) mg/dL Calcium 9.1 (8.4-10.2) mg/dL Urine Color (Yellow) Urine Turbidity (Clear) Urine pH (5.0-7.0) Ur Specific [place] (1.003-1.030) Urine Protein (Negative) mg/dL Urine Glucose (UA) (Negative) mg/dL Urine Ketones (Negative) mg/dL Urine Blood (Negative) Urine Nitrite (Negative) Urine Bilirubin (Negative) Urine Urobilinogen (<2.0) mg/dL Ur Leukocyte Esterase (Negative) Urine WBC (Auto) (0.0-6.0) /HPF Urine RBC (Auto) (0.0-6.0) /HPF U Epithel Cells (Auto) (0-13.0) /HPF Hyaline Casts /LPF Urine Mucus /HPF Salicylates < 0.3 L (2.8-20.0) mg/dL Urine Opiates Screen Urine Methadone Screen Acetaminophen (10.0-30.0) ug/mL Ur Barbiturates Screen Ur Phencyclidine Scrn Ur Amphetamines Screen U Benzodiazepines Scrn Urine Cocaine Screen U Marijuana (THC) Screen Drugs of Abuse Note SARS-CoV-2 (PCR) (Negative) 06/26/21 06/26/21 06/26/21 Range/Units 18:16 20:00 20:00 WBC (4.5-11.0) K/mm3 RBC (3.65-5.03) M/mm3 Hgb (11.8-15.2) gm/dl Hct (35.5-45.6) % MCV (84-94) fl MCH (28-32) pg MCHC (32-34) % RDW (13.2-15.2) % Plt Count (140-440) K/mm3 Lymph % (Auto) (13.4-35.0) % [place] % (Auto) (0.0-7.3) % Eos % (Auto) (0.0-4.3) % Baso % (Auto) (0.0-1.8) % Lymph # (Auto) (1.2-5.4) K/mm3 [place] # (Auto) (0.0-0.8) K/mm3 Eos # (Auto) (0.0-0.4) K/mm3 Baso # (Auto) (0.0-0.1) K/mm3 Seg Neutrophils % (40.0-70.0) % Seg Neutrophils # (1.8-7.7) K/mm3 Sodium (137-145) mmol/L Potassium (3.6-5.0) mmol/L Chloride (98-107) mmol/L Carbon Dioxide (22-30) mmol/L Anion Gap mmol/L BUN (9-20) mg/dL Creatinine (0.8-1.3) mg/dL Estimated GFR ml/min BUN/Creatinine Ratio % Glucose (75-100) mg/dL Calcium (8.4-10.2) mg/dL Urine Color Yellow (Yellow) Urine Turbidity Clear (Clear) Urine pH 5.0 (5.0-7.0) Ur Specific [place] 1.021 (1.003-1.030) Urine Protein 30 mg/dl (Negative) mg/dL Urine Glucose (UA) Neg (Negative) mg/dL Urine Ketones Tr (Negative) mg/dL Urine Blood Neg (Negative) Urine Nitrite Neg (Negative) Urine Bilirubin Neg (Negative) Urine Urobilinogen < 2.0 (<2.0) mg/dL Ur Leukocyte Esterase Neg (Negative) Urine WBC (Auto) 3.0 (0.0-6.0) /HPF Urine RBC (Auto) 2.0 (0.0-6.0) /HPF U Epithel Cells (Auto) 1.0 (0-13.0) /HPF Hyaline Casts 1 /LPF Urine Mucus Few /HPF Salicylates (2.8-20.0) mg/dL Urine Opiates Screen Negative Urine Methadone Screen Negative Acetaminophen 5.0 L (10.0-30.0) ug/mL Ur Barbiturates Screen Negative Ur Phencyclidine Scrn Negative Ur Amphetamines Screen Negative U Benzodiazepines Scrn Positive Urine Cocaine Screen Negative U Marijuana (THC) Screen Negative Drugs of Abuse Note Disclamer SARS-CoV-2 (PCR) (Negative) 06/27/21 Range/Units 10:00 WBC (4.5-11.0) K/mm3 RBC (3.65-5.03) M/mm3 Hgb (11.8-15.2) gm/dl Hct (35.5-45.6) % MCV (84-94) fl MCH (28-32) pg MCHC (32-34) % RDW (13.2-15.2) % Plt Count (140-440) K/mm3 Lymph % (Auto) (13.4-35.0) % [place] % (Auto) (0.0-7.3) % Eos % (Auto) (0.0-4.3) % Baso % (Auto) (0.0-1.8) % Lymph # (Auto) (1.2-5.4) K/mm3 [place] # (Auto) (0.0-0.8) K/mm3 Eos # (Auto) (0.0-0.4) K/mm3 Baso # (Auto) (0.0-0.1) K/mm3 Seg Neutrophils % (40.0-70.0) % Seg Neutrophils # (1.8-7.7) K/mm3 Sodium (137-145) mmol/L Potassium (3.6-5.0) mmol/L Chloride (98-107) mmol/L Carbon Dioxide (22-30) mmol/L Anion Gap mmol/L BUN (9-20) mg/dL Creatinine (0.8-1.3) mg/dL Estimated GFR ml/min BUN/Creatinine Ratio % Glucose (75-100) mg/dL Calcium (8.4-10.2) mg/dL Urine Color (Yellow) Urine Turbidity (Clear) Urine pH (5.0-7.0) Ur Specific [place] (1.003-1.030) Urine Protein (Negative) mg/dL Urine Glucose (UA) (Negative) mg/dL Urine Ketones (Negative) mg/dL Urine Blood (Negative) Urine Nitrite (Negative) Urine Bilirubin (Negative) Urine Urobilinogen (<2.0) mg/dL Ur Leukocyte Esterase (Negative) Urine WBC (Auto) (0.0-6.0) /HPF Urine RBC (Auto) (0.0-6.0) /HPF U Epithel Cells (Auto) (0-13.0) /HPF Hyaline Casts /LPF Urine Mucus /HPF Salicylates (2.8-20.0) mg/dL Urine Opiates Screen Urine Methadone Screen Acetaminophen (10.0-30.0) ug/mL Ur Barbiturates Screen Ur Phencyclidine Scrn Ur Amphetamines Screen U Benzodiazepines Scrn Urine Cocaine Screen U Marijuana (THC) Screen Drugs of Abuse Note SARS-CoV-2 (PCR) Negative (Negative)
[2021-06-27 13:31] VITALS: BP 134/60
== END 2021-06-27 13:32 | disposition home or self-care (01) ==
LOC: ED 15:31
DX: R45.851 Suicidal ideations (principal); I10 Essential (primary) hypertension; M19.90 Unspecified osteoarthritis, unspecified site; Z90.49 Acquired absence of other specified parts of digestive tract; Z87.891 Personal history of nicotine dependence; Z20.822 Contact with and (suspected) exposure to COVID-19
CPT/HCPCS: 36415; 80048; 80307; 81001; 85025; 96372; 99284; J2060; U0003; 80320; 99283; G0480

== ENCOUNTER 2021-11-11 08:24 | Emergency (ER) | payer SELFPAY ==
[2021-11-11 08:34] VITALS: BP 127/99
[2021-11-11 09:31] LABS: Basophils # (Auto) 0.1 K/mm3 (0.0-0.1); Basophils % (Auto) 2.8 % (0.0-1.8); Eosinophils # (Auto) 0.1 K/mm3 (0.0-0.4); Hematocrit 38.9 % (35.5-45.6); Hemoglobin 13.4 gm/dl (11.8-15.2); Lymphocytes # (Auto) 1.3 K/mm3 (1.2-5.4); Lymphocytes % (Auto) 23.7 % (13.4-35.0); Mean Corpuscular HGB Conc 34 % (32-34); Mean Corpuscular Volume 94 fl (84-94); Monocytes # (Auto) 0.5 K/mm3 (0.0-0.8); Monocytes % (Auto) 9.9 % (0.0-7.3); Platelet Count 431 K/mm3 (140-440); Red Blood Count 4.14 M/mm3 (3.65-5.03); Red Cell Distribution Width 14.9 % (13.2-15.2)
[2021-11-11 09:54] LABS: Alanine Aminotransferase 93 units/L (7-56); Albumin 4.3 g/dL (3.9-5); BUN/Creatinine Ratio 11; Blood Urea Nitrogen 9 mg/dL (9-20); Hemolysis Index 5
[2021-11-11] MEDS ORDERED: MORPHINE 4 MG/1 ML INJ IV ONE (11:29)
[2021-11-11] MEDS ORDERED: FAMOTIDINE 20 MG/2 ML INJ IV ONE (11:29)
[2021-11-11] MEDS ORDERED: ONDANSETRON 4 MG/2 ML INJ IV ONE (11:29)
--- NOTE | 2021-11-11 12:02 | Emergency Department Report ---
ED Abdominal Pain HPI - General Chief Complaint: Abdominal Pain Stated Complaint: STOMACH PAIN Time Seen by Provider: 11/11/21 10:47 Source: patient Mode of arrival: Ambulatory Limitations: No Limitations - History of Present Illness Initial Comments: 61-year-old male presents with right upper quadrant abdominal pain x3 days. Describes pain as sharp, with associating nausea and retching. Patient admits that he is a alcoholic, and the pain appears to improves intermittently when he drinks alcohol but does not last. Pain does not radiate to the chest or the flank, no fever, no chills, no vomiting, no diarrhea, no recent travel or sick contacts, tolerating oral intake without difficulty. Reports he has appointments for rehab program to help with his alcoholism. MD Complaint: abdominal pain -: Gradual Location: RUQ Radiation: none Severity: moderate Severity scale (0 -10): 10 Quality: stabbing Consistency: constant Improves With: other (Alcohol) Worsens With: nothing Associated Symptoms: nausea. denies: chills, constipation, melena, anorexia - Related Data Previous Rx's Medication Instructions Recorded Last Taken Type Pantoprazole [Protonix TAB] 40 mg PO QDAY #30 tablet 07/19/18 Unknown Rx amLODIPine 5 mg PO DAILY #60 tab 08/16/18 Unknown Rx Ondansetron [Zofran Odt] 4 mg PO Q12H PRN #12 tab.miltondis 05/12/21 Unknown Rx Gabapentin 100 mg PO BID 30 Days #60 capsule 06/27/21 Unknown Rx Multivitamin with Folic Acid [[facility] 400 mcg PO QDAY #30 tablet 06/27/21 Unknown Rx One Daily Essential Tablet] Pantoprazole [Protonix TAB] 20 mg PO QDAY #30 tablet. 06/27/21 Unknown Rx chlordiazePOXIDE [Librium] 25 mg PO Q6H PRN #25 capsule 06/27/21 Unknown Rx Famotidine [Pepcid] 20 mg PO BID #20 tablet 11/11/21 Unknown Rx Ondansetron [Zofran ODT TAB] 4 mg PO Q8HR PRN #14 tab.rapdis 11/11/21 Unknown Rx traMADoL [Ultram 50 MG tab] 50 mg PO Q6HR PRN #12 tablet 11/11/21 Unknown Rx Allergies Allergy/AdvReac Type Severity Reaction Status Date / Time No Known Allergies Allergy Verified 11/11/21 08:34 ED Review of Systems ROS: Stated complaint: STOMACH PAIN Other details as noted in HPI Constitutional: denies: chills, diaphoresis, weakness Respiratory: denies: cough, orthopnea, shortness of breath Cardiovascular: denies: chest pain Gastrointestinal: abdominal pain, nausea. denies: vomiting, diarrhea Genitourinary: denies: urgency, frequency Musculoskeletal: denies: back pain, joint swelling Skin: denies: rash Neurological: denies: headache, weakness, numbness Psychiatric: anxiety, depression. denies: auditory hallucinations, visual hallucinations, homicidal thoughts ED Past Medical Hx - Past Medical History Hx Hypertension: Yes Hx Congestive Heart Failure: No Hx Diabetes: No Hx Arthritis: Yes (knees) Hx Asthma: No Hx HIV: No Additional medical history: anxiety - Surgical History Hx Cholecystectomy: Yes - Social History Smoking Status: Former Smoker Substance Use Type: Alcohol - Medications Home Medications: Home Medications Medication Instructions Recorded Confirmed Last Taken Type Pantoprazole [Protonix TAB] 40 mg PO QDAY #30 tablet 07/19/18 12/25/18 Unknown Rx amLODIPine 5 mg PO DAILY #60 tab 08/16/18 12/25/18 Unknown Rx Ondansetron [Zofran Odt] 4 mg PO Q12H PRN #12 tab.rapdis 05/12/21 Unknown Rx Gabapentin 100 mg PO BID 30 Days #60 capsule 06/27/21 Unknown Rx Multivitamin with Folic Acid [[facility] 400 mcg PO QDAY #30 tablet 06/27/21 Unknown Rx One Daily Essential Tablet] Pantoprazole [Protonix TAB] 20 mg PO QDAY #30 tablet. 06/27/21 Unknown Rx chlordiazePOXIDE [Librium] 25 mg PO Q6H PRN #25 capsule 06/27/21 Unknown Rx Famotidine [Pepcid] 20 mg PO BID #20 tablet 11/11/21 Unknown Rx Ondansetron [Zofran ODT TAB] 4 mg PO Q8HR PRN #14 tab.rapdis 11/11/21 Unknown Rx traMADoL [Ultram 50 MG tab] 50 mg PO Q6HR PRN #12 tablet 11/11/21 Unknown Rx ED Physical Exam - General Limitations: No Limitations General appearance: alert, in no apparent distress - Head Head exam: Present: atraumatic - Eye Eye exam: Present: normal appearance Pupils: Present: normal accommodation - ENT ENT exam: Present: normal exam, normal orophraynx - Neck Neck exam: Present: normal inspection - Respiratory Respiratory exam: Present: normal lung sounds bilaterally. Absent: respiratory distress - Cardiovascular Cardiovascular Exam: Present: regular rate - GI/Abdominal GI/Abdominal exam: Present: tenderness (Right upper quadrant), normal bowel sounds. Absent: distended, guarding, rebound - Extremities Exam Extremities exam: Present: normal inspection, full ROM - Back Exam Back exam: Present: normal inspection, full ROM. Absent: tenderness, CVA tenderness (R), CVA tenderness (L) - Neurological Exam Neurological exam: Present: alert, oriented X3, CN II-XII intact, normal gait. Absent: motor sensory deficit - Psychiatric Psychiatric exam: Present: normal affect, normal mood, anxious. Absent: depressed - Skin Skin exam: Present: warm, dry, intact, normal color ED Course Vital Signs 11/11/21 08:33 Temperature 98.4 F Pulse Rate 88 Respiratory 18 Rate Blood Pressure 127/99 [Left] O2 Sat by Pulse 99 Oximetry ED Medical Decision Making - Lab Data Result diagrams: 11/11/21 08:37 11/11/21 08:37 Laboratory Results - last 24 hr 11/11/21 11/11/21 08:37 08:37 WBC 5.3 RBC 4.14 Hgb 13.4 Hct 38.9 MCV 94 MCH 32 MCHC 34 RDW 14.9 Plt Count 431 Lymph % (Auto) 23.7 [place] % (Auto) 9.9 H Eos % (Auto) 1.0 Baso % (Auto) 2.8 H Lymph # (Auto) 1.3 [place] # (Auto) 0.5 Eos # (Auto) 0.1 Baso # (Auto) 0.1 Seg Neutrophils % 62.6 Seg Neutrophils # 3.3 Sodium 140 Potassium 4.0 Chloride 102.6 Carbon Dioxide 21 L Anion Gap 20 BUN 9 Creatinine 0.8 Estimated GFR > 60 BUN/Creatinine Ratio 11 Glucose 153 H Calcium 9.0 Total Bilirubin 0.30 AST 48 H ALT 93 H Alkaline Phosphatase 66 Total Protein 6.5 Albumin 4.3 Albumin/Globulin Ratio 2.0 Lipase 39 - Medical Decision Making Differential diagnosis includes pancreatitis, cholecystitis, gastritis, alcoholic liver, diverticulitis, diverticulosis, ACS 61-year-old male presents with right upper quadrant abdominal pain x3 days. Describes pain as sharp, with associating nausea and retching. Patient admits that he is a alcoholic, and the pain appears to improves intermittently when he drinks alcohol but does not last. Pain does not radiate to the chest or the flank, no fever, no chills, no vomiting, no diarrhea, no recent travel or sick contacts, tolerating oral intake without difficulty. Reports he has appointments for rehab program to help with his alcoholism. Previous CTs have been reassuring, with exception of elevated which appears to be at his baseline, patient passed oral challenge, without vomiting. Discharge home with supportive therapy dietary management including alcohol reduction. Felton s an appointment with an outpatient rehab to help with his alcoholism which have also encouraged him to make sure he follows up. At the time of discharge patient reports marked improvement of his symptoms is ambulating steadily, no guarding. Abdomen is soft, nontender Patient remained stable nontoxic-appearing, afebrile, ambulating steadily without assistance. Gone over ED findings with patient as well as plan for follow-up. Also discussed return precautions with patient, all questions and concerns addressed. Patient is stable to be discharged follow-up outpatient. Audio voice dictation device used, hence the chart might contain some dictation errors, mispronunciations, wrong spelling and wrong verbiage. Critical care attestation.: If time is entered above; I have spent that time in minutes in the direct care of this critically ill patient, excluding procedure time. ED Disposition Clinical Impression: Abdominal pain, History of alcohol abuse, Elevated liver enzymes Disposition: 01 HOME / SELF CARE / HOMELESS Is pt being admited?: No Does the pt Need Aspirin: No Condition: Stable Instructions: Abdominal Pain, Adult, [id number], Alcohol Abuse and Nutrition Prescriptions: Famotidine [Pepcid] 20 mg PO BID #20 tablet Ondansetron [Zofran ODT TAB] 4 mg PO Q8HR PRN #14 tab.rapdis PRN Reason: Nausea And Vomiting Referrals: PRIMARY CARE,MD [Primary Care Provider] - 3-5 Days [facility] [Provider Group] - 3-5 Days
[2021-11-11] MEDS ORDERED: SODIUM CHLORIDE 0.9% 1000 ML 1,000 ML IV ONE (12:30)
[2021-11-11 12:39] LABS: WBC,Urine < 1.0 /HPF (0.0-6.0)
[2021-11-11 14:28] LABS: Color,Urine Yellow (Yellow)
== END 2021-11-11 14:00 | disposition home or self-care (01) ==
LOC: ED 08:24
DX: R10.11 Right upper quadrant pain (principal); R74.01 Elevation of levels of liver transaminase levels; F10.10 Alcohol abuse, uncomplicated; I10 Essential (primary) hypertension; F41.9 Anxiety disorder, unspecified; M19.90 Unspecified osteoarthritis, unspecified site; Z87.891 Personal history of nicotine dependence; Z79.899 Other long term (current) drug therapy; Y90.9 Presence of alcohol in blood, level not specified
CPT/HCPCS: 36415; 80053; 81001; 83690; 85025; 96361; 96374; 96375; 99283; J2270; J2405; J3490; J7030

== ENCOUNTER 2021-11-15 18:43 | Emergency (ER) | payer SELFPAY ==
[2021-11-15] MEDS ORDERED: SODIUM CHLORIDE 0.9% 1000 ML 1,000 ML IV ONE (20:22)
[2021-11-15] MEDS ORDERED: LORazepam 1 MG TAB PO ONE (20:22)
--- NOTE | 2021-11-15 20:23 | Emergency Department Report ---
ED Alcohol HPI - General Chief Complaint: Psych Stated Complaint: EVAL Time Seen by Provider: 11/15/21 20:19 Source: patient Mode of arrival: Wheelchair Limitations: No Limitations - History of Present Illness Initial Comments: Patient is a 61-year-old male with a chief complaint of wanting detox and acute alcohol intoxication. Patient was brought here by his son. Patient complains of anxiety. Patient denies suicidal and homicidal ideation. Patient complains of using too much alcohol and desires detox. Patient states he is hurting his family with his alcohol use.. Patient denies chest pain. Patient denies shortness of breath. Patient denies any other complaints. Patient denies nausea vomiting. Patient denies recent travel. Patient denies recent international travel. Patient denies exposure to the novel coronavirus. Patient denies sick contacts. Patient denies fever and chills. Patient denies cough. Patient denies diarrhea. Patient denies coming in contact with anybody with symptoms of the novel coronavirus. MD Complaint: alcohol intoxication Last Drink: just [employer] -: minute(s) Chronic Alcohol Use: Yes Previous Visits for Alcohol Intoxication?: Yes Recent Trauma: No Associated Symptoms: other (Anxiety) Treatments Prior to Arrival: none - Related Data Previous Rx's Medication Instructions Recorded Last Taken Type Pantoprazole [Protonix TAB] 40 mg PO QDAY #30 tablet 07/19/18 Unknown Rx amLODIPine 5 mg PO DAILY #60 tab 08/16/18 Unknown Rx Ondansetron [Zofran Odt] 4 mg PO Q12H PRN #12 tab.rapdis 05/12/21 Unknown Rx Gabapentin 100 mg PO BID 30 Days #60 capsule 06/27/21 Unknown Rx Multivitamin with Folic Acid [[facility] 400 mcg PO QDAY #30 tablet 06/27/21 Unknown Rx One Daily Essential Tablet] Pantoprazole [Protonix TAB] 20 mg PO QDAY #30 tablet. 06/27/21 Unknown Rx chlordiazePOXIDE [Librium] 25 mg PO Q6H PRN #25 capsule 06/27/21 Unknown Rx Famotidine [Pepcid] 20 mg PO BID #20 tablet 11/11/21 Unknown Rx Ondansetron [Zofran ODT TAB] 4 mg PO Q8HR PRN #14 tab.rapdis 11/11/21 Unknown Rx traMADoL [Ultram 50 MG tab] 50 mg PO Q6HR PRN #12 tablet 11/11/21 Unknown Rx Allergies Allergy/AdvReac Type Severity Reaction Status Date / Time No Known Allergies Allergy Verified 11/11/21 08:34 ED Review of Systems ROS: Stated complaint: MARY WORTHY Other details as noted in HPI Comment: All other systems reviewed and negative Psychiatric: as per HPI, anxiety ED Past Medical Hx - Past Medical History Previous Medical History?: Yes Hx Hypertension: Yes Hx Congestive Heart Failure: No Hx Diabetes: No Hx Arthritis: Yes (knees) Hx Asthma: No Hx HIV: No Additional medical history: anxiety - Surgical History Past Surgical History?: Yes Hx Cholecystectomy: Yes - Family History Family history: no significant - Social History Smoking Status: Former Smoker Substance Use Type: Alcohol - Medications Home Medications: Home Medications Medication Instructions Recorded Confirmed Last Taken Type Pantoprazole [Protonix TAB] 40 mg PO QDAY #30 tablet 07/19/18 12/25/18 Unknown Rx amLODIPine 5 mg PO DAILY #60 tab 08/16/18 12/25/18 Unknown Rx Ondansetron [Zofran Odt] 4 mg PO Q12H PRN #12 tab.rapdis 05/12/21 Unknown Rx Gabapentin 100 mg PO BID 30 Days #60 capsule 06/27/21 Unknown Rx Multivitamin with Folic Acid [[facility] 400 mcg PO QDAY #30 tablet 06/27/21 Unknown Rx One Daily Essential Tablet] Pantoprazole [Protonix TAB] 20 mg PO QDAY #30 tablet.dr 06/27/21 Unknown Rx chlordiazePOXIDE [Librium] 25 mg PO Q6H PRN #25 capsule 06/27/21 Unknown Rx Famotidine [Pepcid] 20 mg PO BID #20 tablet 11/11/21 Unknown Rx Ondansetron [Zofran ODT TAB] 4 mg PO Q8HR PRN #14 tab.rapdis 11/11/21 Unknown Rx traMADoL [Ultram 50 MG tab] 50 mg PO Q6HR PRN #12 tablet 11/11/21 Unknown Rx ED Physical Exam - General Limitations: No Limitations General appearance: alert, in no apparent distress - Head Head exam: Present: atraumatic, normocephalic - Eye Eye exam: Present: normal appearance - ENT ENT exam: Present: mucous membranes moist - Neck Neck exam: Present: normal inspection - Respiratory Respiratory exam: Present: normal lung sounds bilaterally. Absent: respiratory distress - Cardiovascular Cardiovascular Exam: Present: regular rate, normal rhythm. Absent: systolic murmur, diastolic murmur, rubs, gallop - GI/Abdominal GI/Abdominal exam: Present: soft, normal bowel sounds - Rectal Rectal exam: Present: deferred - Extremities Exam Extremities exam: Present: normal inspection - Back Exam Back exam: Present: normal inspection - Neurological Exam Neurological exam: Present: alert, oriented X3 - Psychiatric Psychiatric exam: Present: normal affect, normal mood - Skin Skin exam: Present: warm, dry, intact, normal color. Absent: rash ED Course Vital Signs 11/15/21 18:55 Temperature 99.6 F Pulse Rate 78 Respiratory 20 Rate Blood Pressure 167/81 [Left] O2 Sat by Pulse 100 Oximetry - Reevaluation(s) Reevaluation #1: I discussed case with the patient's son. Patient requires medical clearance for detox. Patient has a bed for her in the morning. Patient drank 1/5 of lyly. 11/15/21 20:21 Reevaluation #2: Patient is alert and oriented x4. Patient answering all questions appropriately. Patient is complaining of anxiety. Patient will be given lorazepam. Patient states his family is not anywhere they can pick him up. Patient will remain in the ER until the family picks him up. I discussed all results and clinical findings with patient. I discussed plan of care with patient. Patient agrees with plan of care. Patient is stable for discharge. Patient will be discharged home. Patient given discharge instructions. Patient voiced understanding of discharge instructions. 11/16/21 01:08 ED Medical Decision Making - Lab Data Result diagrams: 11/15/21 20:44 11/15/21 20:44 - Medical Decision Making Patient is a 61-year-old male who presents emergency room for medical clearance and desiring detox. Patient is acutely intoxicated. Patient brought in by family. I discussed the case with his family. Patient alert and oriented the entire time in the ER. Patient given IV fluids. Patient ambulatory and alert in the ER the entire time. Patient had labs done which were essentially unrema rkable except for elevated blood alcohol level. Patient was monitored until he was clinically sober. I discussed all results and clinical findings with patient. I discussed plan of care with patient. Patient agrees with plan of care. Patient is stable for discharge. Patient will be discharged home. Patient given discharge instructions. Patient voiced understanding of discharge instructions. - Differential Diagnosis Acute alcohol intoxication, desires detox Critical care attestation.: If time is entered above; I have spent that time in minutes in the direct care of this critically ill patient, excluding procedure time. ED Disposition Clinical Impression: History of alcohol abuse, Anxiety Acute alcohol intoxication Qualifiers: Complication of substance-induced condition: uncomplicated Qualified Code(s): F10.920 - Alcohol use, unspecified with intoxication, uncomplicated Disposition: 01 HOME / SELF CARE / HOMELESS Is pt being admited?: No Does the pt Need Aspirin: No Condition: Stable Instructions: Alcohol Use Disorder, Substance Use Disorder and Mental Illness, Alcohol Intoxication, Managing Anxiety, Adult Additional Instructions: Patient to follow-up with primary care in 2 to 3 days. Patient to go directly to detox.. Patient to rest. Patient to increase water. Patient to take Tylenol or ibuprofen as needed for pain. Patient to return to the ER if condition worsens, changes or new symptoms arise. In case of an emergency, please contact the following numbers: [place] Crisis and [facility]: Number: Crisis Text Line: (Text START) Number: 481658 Suicide Prevention Line: Number: Emergency Number: 911 SUBSTANCE ABUSE PROGRAMS: [facility] [place]: Location: [place], [place] [facility] Address: [address] [place] [address] [facility]: Address: [address] [place] [address] [facility]: Address: [address] [place] [address] [facility]: Address: [address] [place] [address] [facility] Address: [address] [place] [address]. Please contact above numbers to attempt placement into free based program. Medicaid Programs: [facility]: Address: [address] [place] [address] [facility]: Address: [address] [place], [place] [address], [place] [address] Professional and Agency Contacts To help Res[facility] Crises (15/09) [place] Crisis Line: Suicide Prevention Line: Crisis Text Line: Text START to 708618 Emergency: 911 Outpatient COMMUNITY Behavioral Health Resources: [place]: [facility] [address] [place], [place] [address] [place]: [facility] [address] [place] [address] Thursday thru Thursday - 8am - 5pm Call to schedule an assessment for mental health and substance abuse programs [facility] Address: [address] [place] [address] Thursday thru Thursday- 7am-2pm [facility] Address: [address] [place] [address] Thursday thru Thursday: 8:30AM-5PM Referrals: PRIMARY CAREMD [Primary Care Provider] - 2-3 Days JUAN MAE MD [Staff Physician] - 2-3 Days Time of Disposition: 01:07
[2021-11-15 20:59] LABS: Basophils # (Auto) 0.1 K/mm3 (0.0-0.1); Basophils % (Auto) 1.8 % (0.0-1.8); Eosinophils % (Auto) 0.5 % (0.0-4.3); Hematocrit 46.4 % (35.5-45.6); Hemoglobin 15.5 gm/dl (11.8-15.2); Lymphocytes # (Auto) 1.4 K/mm3 (1.2-5.4); Lymphocytes % (Auto) 19.7 % (13.4-35.0); Mean Corpuscular HGB Conc 33 % (32-34); Mean Corpuscular Volume 94 fl (84-94); Monocytes # (Auto) 0.5 K/mm3 (0.0-0.8); Monocytes % (Auto) 6.4 % (0.0-7.3); Platelet Count 419 K/mm3 (140-440); Red Blood Count 4.94 M/mm3 (3.65-5.03); Red Cell Distribution Width 15.4 % (13.2-15.2)
[2021-11-15 21:00] LABS: Bilirubin,Urine NEG (Negative); Blood,Urine SM (Negative); Color,Urine Yellow (Yellow); Hyaline Casts,Urine 1 /LPF; Mucus,Urine FEW /HPF; Protein,Urine <15 mg/dL mg/dL (Negative); Urobilinogen,Urine < 2 mg/dL (<2.0); WBC,Urine < 1.0 /HPF (0.0-6.0)
[2021-11-15 21:10] LABS: Alanine Aminotransferase 89 units/L (7-56); Albumin 4.8 g/dL (3.9-5); BUN/Creatinine Ratio 10; Blood Urea Nitrogen 10 mg/dL (9-20); Calcium 8.9 mg/dL (8.4-10.2); Hemolysis Index 5
[2021-11-15 21:13] LABS: Amphetamine Screen,Urine Negative; Benzodiazepines Screen,Urine Negative; Cannabinoid Screen,Urine Negative; Cocaine Screen,Urine Negative; Methadone Screen,Urine Negative; Opiate Screen,Urine Negative
[2021-11-16] MEDS ORDERED: LORazepam 1 MG TAB PO ONE (01:13)
[2021-11-16 02:10] VITALS: BP 140/98
== END 2021-11-16 09:54 | disposition home or self-care (01) ==
LOC: ED 18:43
DX: F10.20 Alcohol dependence, uncomplicated (principal); F41.9 Anxiety disorder, unspecified; Z87.891 Personal history of nicotine dependence; I10 Essential (primary) hypertension; Z90.49 Acquired absence of other specified parts of digestive tract
CPT/HCPCS: 36415; 80053; 80307; 81001; 85025; 96360; 99283; J7030; 80320; G0480